=== PATIENT | female | born 1935 | race Two or more races ===

== ENCOUNTER 2016-04-14 13:32 | Emergency (ER) | payer MEDICARE, MEDICAID ==
[~2016-04-14] VITALS: Ht 154.9 cm; Wt 78.2 kg
[~2016-04-14 13:32] MED LIST: ATEN-60 PO; ESCI10TA PO; GABA300C PO; LEVO1TAB PO; LORA1TAB12 PO; MECL25TA94; OXYB15TA12 PO; POLYSOL5 EACHEYE; Pantoprazole Sodium Sesquihydr PO; SIMV-13 PO
[2016-04-14 14:49] LABS: Albumin 3.7 g/dL (3.4-5.0); BUN/Creatinine Ratio 10.5; Bilirubin, Total 0.4 mg/dL (0.2-1.0); Calcium 8.8 mg/dL (8.5-10.1); Potassium 4.1 mmol/L (3.5-5.1); Total Protein 7.5 g/dL (6.4-8.2)
[2016-04-14 15:22] LABS: Basophils # (auto) 0 uL; Basophils % (auto) 0.4 % (0.0-2.0); Eosinophils # (auto) 0.2 uL; Eosinophils % (auto) 2.8 % (0.0-7.0); Hematocrit 39.1 % (36.0-46.0); Hemoglobin 12.4 g/dL (12.2-16.2); Lymphocytes # (auto) 1.7 uL; Lymphocytes % (auto) 25.8 % (10.0-50.0); Mean Corpuscular Hemoglobin 27.8 pg (28.0-32.0); Mean Corpuscular Hgb Conc. 31.8 g/dL (32.0-36.0); Mean Corpuscular Volume 87.5 fL (80.0-100.0); Mean Platelet Volume 8.8 fL (7.4-10.4); Monocytes # (auto) 0.5 uL; Neutrophils # (auto) 4.2 uL; Platelet Count (auto) 242 10^3/uL (140-450); Red Cell Distribution Width 14.9 % (11.6-16.0); White Blood Cell 6.7 10^3/uL (4.4-10.8)
[2016-04-15] MEDS ORDERED: LORazepam 0.5 MG TAB PO ONE (00:15)
[2016-04-15 02:11] VITALS: BP 139/73
== END 2016-04-15 02:51 | disposition home or self-care (01) ==
LOC: ER 13:37
DX: R51 Headache (principal); R10.9 Unspecified abdominal pain; R19.7 Diarrhea, unspecified; J44.9 Chronic obstructive pulmonary disease, unspecified; E78.5 Hyperlipidemia, unspecified; I10 Essential (primary) hypertension; K76.9 Liver disease, unspecified; Z87.440 Personal history of urinary (tract) infections; Z90.89 Acquired absence of other organs; Z90.710 Acquired absence of both cervix and uterus; Z88.1 Allergy status to other antibiotic agents; Z88.2 Allergy status to sulfonamides; Z88.6 Allergy status to analgesic agent; Z88.8 Allergy status to other drugs, medicaments and biological substances
CPT/HCPCS: 36415; 80053; 84484; 85025; 93005

== ENCOUNTER → 2016-09-13 | Outpatient (CLI) | payer MEDICARE, MEDICAID ==
[2016-09-13 11:10] LABS: Urine Bilirubin Negative (Negative); Urine Blood Negative /uL (Negative); Urine Color Yellow (Yellow); Urine Glucose Normal (Normal); Urine Ketone Negative (Negative); Urine Mucus FEW (None Seen); Urine Nitrite Negative (Negative); Urine RBC <1 /hpf (0 - 4); Urine Squamous Epithelial Cell FEW /hpf (<5)
== END | disposition home or self-care (01) ==
LOC: LAB 10:43
PROVIDERS: ATTEND Internal Medicine Gastroenterology
DX: R10.9 Unspecified abdominal pain (principal)
CPT/HCPCS: 81001

== ENCOUNTER → 2016-11-06 | Outpatient (CLI) | payer MEDICARE, MEDICAID | END | disposition home or self-care (01) | LOC: LAB 10:43 | PROVIDERS: ATTEND Internal Medicine | DX: N39.0 Urinary tract infection, site not specified (principal) | CPT/HCPCS: 87086 ==

== ENCOUNTER 2016-12-17 19:20 | Emergency (ER) | payer MEDICARE, MEDICAID ==
[~2016-12-17] VITALS: Ht 160 cm; Wt 72.6 kg
[2016-12-17 20:37] LABS: Basophils # (auto) 0 uL; Basophils % (auto) 0.8 % (0.0-2.0); Eosinophils # (auto) 0.2 uL; Eosinophils % (auto) 3.8 % (0.0-7.0); Hematocrit 39.4 % (36.0-46.0); Hemoglobin 13.1 g/dL (12.2-16.2); Lymphocytes % (auto) 38.3 % (10.0-50.0); Mean Corpuscular Hemoglobin 30.2 pg (28.0-32.0); Mean Corpuscular Hgb Conc. 33.2 g/dL (32.0-36.0); Mean Corpuscular Volume 90.9 fL (80.0-100.0); Mean Platelet Volume 8.5 fL (7.4-10.4); Monocytes # (auto) 0.5 uL; Monocytes % (auto) 8.9 % (0.0-12.0); Neutrophils # (auto) 2.5 uL; Neutrophils % (auto) 48.2 % (37.0-80.0); Platelet Count (auto) 204 10^3/uL (140-450); Red Cell Distribution Width 14.8 % (11.6-16.0); White Blood Cell 5.2 10^3/uL (4.4-10.8)
[2016-12-17 20:59] LABS: Albumin 3.4 g/dL (3.4-5.0); Amylase 59 U/L (25-115); Anion Gap 9 (5-15); Calcium 8.5 mg/dL (8.5-10.1); Carbon Dioxide 24 mmol/L (21-32); Chloride 111 mmol/L (98-107); Glucose 101 mg/dL (74-106); Magnesium 2.5 mg/dL (1.6-2.6); Potassium 4.1 mmol/L (3.5-5.1); Sodium 144 mmol/L (136-145)
[2016-12-17 21:02] LABS: Aspartate Aminotransferase 21 U/L (15-37); BUN/Creatinine Ratio 6.7; Bilirubin, Total 0.3 mg/dL (0.2-1.0); Blood Urea Nitrogen 5 mg/dL (7-18); GFR African American 96 mL/min; GFR Non-African American 79 mL/min; Total Protein 7.1 g/dL (6.4-8.2)
[2016-12-17 21:03] LABS: INR 0.93 (0.9-1.15); Partial Thromboplastin Time 24.2 sec (22.64-33.71); Prothrombin Time 10.1 sec (9.37-12.3)
[2016-12-17 21:16] LABS: Alkaline Phosphatase 90 U/L (45-117)
[2016-12-17 21:18] LABS: Temperature: 22.2 C (20.0-25.0)
[2016-12-17 22:11] LABS: Urine RBC None Seen /hpf (0 - 4)
[2016-12-17 22:50] LABS: Urine Bilirubin Negative (Negative); Urine Blood Negative /uL (Negative); Urine Color Yellow (Yellow); Urine Glucose Normal (Normal); Urine Ketone Negative (Negative); Urine Nitrite Negative (Negative); Urine Squamous Epithelial Cell FEW /hpf (<5); Urine Urobilinogen Normal (Negative); Urine pH 7.5 (5.0-8.0)
[2016-12-18] MEDS ORDERED: ONDANSETRON HCL 4 MG/2 ML VIAL IV ONE (00:45)
[2016-12-18] MEDS ORDERED: ACETAMINOPHEN 325 MG TAB PO ONE (00:45)
[2016-12-18] MEDS ORDERED: SODIUM CHLORIDE 0.9% 1,000 ML IV ONE (00:45)
[2016-12-18 03:00] VITALS: BP 142/82
== END 2016-12-18 03:36 | disposition home or self-care (01) ==
LOC: ER 19:21
DX: R19.7 Diarrhea, unspecified (principal); R10.9 Unspecified abdominal pain; I10 Essential (primary) hypertension; E78.5 Hyperlipidemia, unspecified; E07.89 Other specified disorders of thyroid; Z86.73 Personal history of transient ischemic attack (TIA), and cerebral infarction without residual deficits; Z87.440 Personal history of urinary (tract) infections; Z90.49 Acquired absence of other specified parts of digestive tract; Z90.89 Acquired absence of other organs; Z88.0 Allergy status to penicillin; Z88.2 Allergy status to sulfonamides; Z88.6 Allergy status to analgesic agent
CPT/HCPCS: 36415; 70450; 71010; 74176; 80053; 81001; 82150; 83690; 83735; 83880; 84484; 85025; 85610; 85730; 93005; 96361; 96374; 99285; J2405; J7030

== ENCOUNTER 2017-02-07 16:19 | Emergency (ER) | payer MEDICARE, MEDICAID ==
[~2017-02-07] VITALS: Ht 154.9 cm; Wt 67.8 kg
[2017-02-07 18:16] LABS: Basophils # (auto) 0.1 uL; Basophils % (auto) 0.7 % (0.0-2.0); Eosinophils # (auto) 0.1 uL; Eosinophils % (auto) 1.7 % (0.0-7.0); Hematocrit 41.2 % (36.0-46.0); Hemoglobin 13.6 g/dL (12.2-16.2); Lymphocytes # (auto) 1.8 uL; Lymphocytes % (auto) 23.7 % (10.0-50.0); Mean Corpuscular Volume 91.1 fL (80.0-100.0); Monocytes # (auto) 0.5 uL; Monocytes % (auto) 6.4 % (0.0-12.0); Neutrophils # (auto) 5.1 uL; Neutrophils % (auto) 67.5 % (37.0-80.0); Platelet Count (auto) 190 10^3/uL (140-450); Red Blood Cells 4.53 10^6/uL (4.0-5.20); Red Cell Distribution Width 14.1 % (11.8-14.3); White Blood Cell 7.5 10^3/uL (4.4-10.8)
[2017-02-07 18:36] LABS: Alanine Aminotransferase 15 U/L (13-56); Albumin 3.8 g/dL (3.4-5.0); Alkaline Phosphatase 103 U/L (45-117); Anion Gap 9 (5-15); Aspartate Aminotransferase 20 U/L (15-37); BUN/Creatinine Ratio 14.7; Bilirubin, Total 0.5 mg/dL (0.2-1.0); Blood Urea Nitrogen 10 mg/dL (7-18); Calcium 8.9 mg/dL (8.5-10.1); Carbon Dioxide 24 mmol/L (21-32); Chloride 106 mmol/L (98-107); GFR African American 107 mL/min; GFR Non-African American 88 mL/min; Glucose 96 mg/dL (74-106); Potassium 3.8 mmol/L (3.5-5.1); Sodium 139 mmol/L (136-145); Total Protein 7.8 g/dL (6.4-8.2)
[2017-02-07 21:49] LABS: Urine Bacteria FEW /hpf (None Seen); Urine Blood Negative /uL (Negative); Urine Specific Gravity 1.006 (1.001-1.035); Urine WBC 5 /hpf (0 - 5)
[2017-02-07] MEDS ORDERED: CLINDAMYCIN 600MG IV 50 ML IV ONE (22:45)
[2017-02-07] MEDS ORDERED: HYDROcodone-ACET 5/325MG TAB PO ONE (22:45)
[2017-02-08 00:43] VITALS: BP 145/73
== END 2017-02-08 00:47 | disposition home or self-care (01) ==
LOC: ER 16:25
DX: R42 Dizziness and giddiness (principal); T63.301A Toxic effect of unspecified spider venom, accidental (unintentional), initial encounter; R51 Headache; L03.116 Cellulitis of left lower limb; I10 Essential (primary) hypertension; Z90.49 Acquired absence of other specified parts of digestive tract; Z87.440 Personal history of urinary (tract) infections; Z86.73 Personal history of transient ischemic attack (TIA), and cerebral infarction without residual deficits; Z88.1 Allergy status to other antibiotic agents; Z88.2 Allergy status to sulfonamides; Z88.6 Allergy status to analgesic agent; Z88.8 Allergy status to other drugs, medicaments and biological substances
CPT/HCPCS: 36415; 71020; 80053; 81001; 84484; 85025; 93005; 96365; 96366; 99285; J3490

== ENCOUNTER → 2017-02-26 | Outpatient (CLI) | payer MEDICARE, MEDICAID ==
[~2017-02-26] MED LIST changes: -ATEN-60 PO
[2017-02-26 11:10] VITALS: BP 179/54
[2017-02-26 12:39] LABS: Basophils # (auto) 0 uL; Basophils % (auto) 0.3 % (0.0-2.0); Eosinophils # (auto) 0.2 uL; Eosinophils % (auto) 3.1 % (0.0-7.0); Hematocrit 34.7 % (36.0-46.0); Hemoglobin 11.5 g/dL (12.2-16.2); Lymphocytes # (auto) 1.5 uL; Lymphocytes % (auto) 20.7 % (10.0-50.0); Mean Corpuscular Hemoglobin 31.3 pg (28.0-32.0); Mean Corpuscular Hgb Conc. 33.2 g/dL (32.0-36.0); Mean Corpuscular Volume 94.5 fL (80.0-100.0); Mean Platelet Volume 7.5 fL (6.9-10.8); Monocytes # (auto) 0.6 uL; Monocytes % (auto) 8.3 % (0.0-12.0); Neutrophils # (auto) 4.9 uL; Neutrophils % (auto) 67.6 % (37.0-80.0); Platelet Count (auto) 260 10^3/uL (140-450); Red Cell Distribution Width 17.1 % (11.8-14.3); White Blood Cell 7.3 10^3/uL (4.4-10.8)
[2017-02-26 13:03] LABS: Magnesium 2.2 mg/dL (1.6-2.6)
[2017-02-26 13:14] LABS: B-Type Natriuretic Peptide 30.85 pg/mL (0-100)
[2017-02-26 13:56] LABS: Temperature: 21.4 C (20.0-25.0)
== END | disposition home or self-care (01) ==
LOC: CHF HDHVI 11:11
PROVIDERS: ATTEND Internal Medicine Cardiovascular Disease
DX: I50.9 Heart failure, unspecified (principal); E83.42 Hypomagnesemia; D64.9 Anemia, unspecified; I20.9 Angina pectoris, unspecified; Z95.0 Presence of cardiac pacemaker
CPT/HCPCS: 36415; 83735; 83880; 84484; 85025; 93005; G0463

== ENCOUNTER 2017-04-13 12:50 | Emergency (ER) | payer MEDICARE, MEDICAID ==
[~2017-04-13] VITALS: Ht 154.9 cm; Wt 66.2 kg
[~2017-04-13 12:50] MED LIST changes: -MECL25TA94
[2017-04-13 14:08] LABS: Basophils # (auto) 0.1 uL; Basophils % (auto) 0.6 % (0.0-2.0); Eosinophils # (auto) 0.2 uL; Hematocrit 39.1 % (36.0-46.0); Hemoglobin 12.8 g/dL (12.2-16.2); Lymphocytes # (auto) 1.6 uL; Lymphocytes % (auto) 17.4 % (10.0-50.0); Mean Corpuscular Hemoglobin 30.3 pg (28.0-32.0); Mean Corpuscular Hgb Conc. 32.6 g/dL (32.0-36.0); Mean Corpuscular Volume 92.8 fL (80.0-100.0); Monocytes # (auto) 0.7 uL; Monocytes % (auto) 7.9 % (0.0-12.0); Neutrophils # (auto) 6.8 uL; Neutrophils % (auto) 72.1 % (37.0-80.0); Platelet Count (auto) 243 10^3/uL (140-450); Red Blood Cells 4.21 10^6/uL (4.0-5.20); Red Cell Distribution Width 14.1 % (11.8-14.3); White Blood Cell 9.4 10^3/uL (4.4-10.8)
[2017-04-13 14:27] LABS: Albumin 3.7 g/dL (3.4-5.0); BUN/Creatinine Ratio 14.9; Bilirubin, Total 0.6 mg/dL (0.2-1.0); Calcium 8.9 mg/dL (8.5-10.1); Potassium 3.5 mmol/L (3.5-5.1); Total Protein 7.9 g/dL (6.4-8.2)
[2017-04-13 15:03] VITALS: BP 166/59
== END 2017-04-13 15:31 | disposition home or self-care (01) ==
LOC: ER 12:50
DX: J20.9 Acute bronchitis, unspecified (principal); J02.9 Acute pharyngitis, unspecified; N39.0 Urinary tract infection, site not specified; I10 Essential (primary) hypertension; E78.5 Hyperlipidemia, unspecified; Z90.49 Acquired absence of other specified parts of digestive tract; Z86.73 Personal history of transient ischemic attack (TIA), and cerebral infarction without residual deficits; Z96.89 Presence of other specified functional implants; Z88.1 Allergy status to other antibiotic agents; Z88.8 Allergy status to other drugs, medicaments and biological substances
CPT/HCPCS: 36415; 71046; 80053; 81002; 85025

== ENCOUNTER → 2017-07-10 | Outpatient (CLI) | payer MEDICARE, MEDICAID | END | disposition home or self-care (01) | LOC: Rad HDHVI 10:10 | PROVIDERS: ATTEND Internal Medicine | DX: I73.9 Peripheral vascular disease, unspecified (principal); I10 Essential (primary) hypertension; E78.5 Hyperlipidemia, unspecified; J44.9 Chronic obstructive pulmonary disease, unspecified; Z79.899 Other long term (current) drug therapy | CPT/HCPCS: 93926 ==

== ENCOUNTER 2017-08-21 09:56 | Inpatient (IN) | payer MEDICARE, MEDICAID ==
[~2017-08-21] VITALS: Ht 154.9 cm; Wt 66.2 kg
[2017-08-21 11:16] LABS: Urine Bacteria FEW /hpf (None Seen); Urine Blood TRACE /uL (Negative); Urine Mucus FEW (None Seen); Urine Specific Gravity 1.018 (1.001-1.035); Urine WBC 464 /hpf (0 - 5); Urine WBC Clumps PRESENT /hpf (None Seen)
[2017-08-21 11:31] LABS: Basophils # (auto) 0.1 uL; Basophils % (auto) 1.9 % (0.0-2.0); Eosinophils # (auto) 0.2 uL; Eosinophils % (auto) 2.6 % (0.0-7.0); Hematocrit 39.8 % (36.0-46.0); Hemoglobin 13.2 g/dL (12.2-16.2); Lymphocytes # (auto) 1.6 uL; Lymphocytes % (auto) 25.6 % (10.0-50.0); Mean Corpuscular Hemoglobin 30.4 pg (28.0-32.0); Mean Corpuscular Hgb Conc. 33.1 g/dL (32.0-36.0); Mean Corpuscular Volume 91.9 fL (80.0-100.0); Monocytes # (auto) 0.5 uL; Monocytes % (auto) 7.8 % (0.0-12.0); Neutrophils # (auto) 3.9 uL; Neutrophils % (auto) 62.1 % (37.0-80.0); Nucleated Red Blood Cells % 0.1 %; Platelet Count (auto) 202 10^3/uL (140-450); Red Blood Cells 4.33 10^6/uL (4.0-5.20); Red Cell Distribution Width 15.3 % (11.8-14.3); White Blood Cell 6.3 10^3/uL (4.4-10.8)
[2017-08-21] MEDS ORDERED: cefTRIAXone 1GM/10ml IVPUSH 10 ML IV ONE ×2 (11:45→14:00)
[2017-08-21] MEDS ORDERED: ONDANSETRON ODT 4 MG TAB PO ONE (11:45)
[2017-08-21] MEDS ORDERED: SODIUM CHLORIDE 0.9% 500 ML IV ONE (11:45)
[2017-08-21 11:48] LABS: Albumin 3.8 g/dL (3.4-5.0); Bilirubin, Total 0.4 mg/dL (0.2-1.0); Calcium 8.8 mg/dL (8.5-10.1); Potassium 4.7 mmol/L (3.5-5.1); Total Protein 7.8 g/dL (6.4-8.2)
[2017-08-21] MEDS ORDERED: LEVOFLOXACIN 500MG 100 ML IV ONE (12:30)
[2017-08-21] MEDS ORDERED: MORPHINE SULFATE 4 MG/ML SYR/VIAL IV ONE (12:30)
[2017-08-21] MEDS ORDERED: METOCLOPRAMIDE HCL 5MG/ml INJ 2ml VIAL IV ONE (12:30)
[2017-08-21] MEDS: B-COMPLEX W/ C & FOLIC ACID(NEPHROVITE TAB) PO SCH (14:00)
[2017-08-21] MEDS ORDERED: MORPHINE SULFATE 4 MG/ML SYR/VIAL IV PRN ×2 (14:15)
[2017-08-21] MEDS ORDERED: ACETAMINOPHEN 325 MG TAB PO PRN (14:15)
[2017-08-21] MEDS ORDERED: NITROGLYCERIN 0.4 MG SL TAB SL PRN (14:15)
[2017-08-21] MEDS ORDERED: DOCUSATE SOD 100 MG CAP PO PRN (14:15)
[2017-08-21] MEDS ORDERED: GABAPENTIN 300 MG CAP PO ONE (14:30)
[2017-08-21] MEDS ORDERED: LEVOTHYROXINE SODIUM 25 MCG TAB PO ONE (14:30)
[2017-08-21] MEDS ORDERED: MULTIPLE VITAMIN TAB PO ONE (14:30)
[2017-08-21] MEDS ORDERED: CITALOPRAM HYDROBR 20 MG TAB PO ONE (14:30)
[2017-08-21] MEDS ORDERED: PANTOPRAZOLE 40 MG TAB PO ONE (14:30)
[2017-08-21] MEDS ORDERED: ASPirin-EC 81 mg tab PO ONE (14:30)
[2017-08-21] MEDS ORDERED: LORazepam 2MG/ML-1ML VIAL IV PRN (16:30)
[2017-08-21] MEDS: OXYBUTYNIN CHL 5 MG TAB PO SCH ×2 (18:00→23:55)
[2017-08-21] MEDS: ONDANSETRON HCL 4 MG/2 ML VIAL IV PRN (18:30)
[2017-08-21] MEDS: HYDROcodone-ACET 5/325MG TAB PO PRN (18:30)
[2017-08-21] MEDS: GABAPENTIN 300 MG CAP PO SCH (21:26)
[2017-08-21] MEDS: LORazepam 0.5 MG TAB PO PRN (21:28)
[2017-08-21] MEDS: ATORVASTATIN 20 MG TAB PO SCH (21:28)
[2017-08-21] MEDS: SODIUM CHLOR 0.9% PF (SALINE LOCK) 10ML VIAL/SYR IV SCH (21:29)
[2017-08-21 21:59] VITALS: BP 152/82
[2017-08-22 05:00] VITALS: BP 117/66
[2017-08-22] MEDS: LEVOTHYROXINE SODIUM 25 MCG TAB PO SCH (05:53)
[2017-08-22] MEDS: SODIUM CHLOR 0.9% PF (SALINE LOCK) 10ML VIAL/SYR IV SCH ×3 (05:53→21:38)
[2017-08-22] MEDS: OXYBUTYNIN CHL 5 MG TAB PO SCH ×4 (05:54→23:25)
[2017-08-22 06:54] LABS: Basophils # (auto) 0.1 uL; Basophils % (auto) 1.1 % (0.0-2.0); Eosinophils # (auto) 0.2 uL; Eosinophils % (auto) 3.8 % (0.0-7.0); Hematocrit 39.8 % (36.0-46.0); Hemoglobin 13.2 g/dL (12.2-16.2); Lymphocytes # (auto) 1.5 uL; Lymphocytes % (auto) 30.1 % (10.0-50.0); Mean Corpuscular Hemoglobin 30.6 pg (28.0-32.0); Mean Corpuscular Hgb Conc. 33.1 g/dL (32.0-36.0); Mean Corpuscular Volume 92.3 fL (80.0-100.0); Monocytes # (auto) 0.4 uL; Monocytes % (auto) 9.3 % (0.0-12.0); Neutrophils # (auto) 2.7 uL; Neutrophils % (auto) 55.7 % (37.0-80.0); Nucleated Red Blood Cells % 0.1 %; Platelet Count (auto) 204 10^3/uL (140-450); Red Blood Cells 4.31 10^6/uL (4.0-5.20); Red Cell Distribution Width 15.3 % (11.8-14.3); White Blood Cell 4.8 10^3/uL (4.4-10.8)
[2017-08-22 07:03] LABS: Albumin 3.4 g/dL (3.4-5.0); Calcium 8.5 mg/dL (8.5-10.1); Potassium 4.1 mmol/L (3.5-5.1)
[2017-08-22 07:05] LABS: BUN/Creatinine Ratio 12.8
[2017-08-22 07:07] LABS: Bilirubin, Total 0.6 mg/dL (0.2-1.0); Total Protein 7.5 g/dL (6.4-8.2)
[2017-08-22 09:00] VITALS: BP 117/66
[2017-08-22] MEDS: cefTRIAXone 1GM/10ml IVPUSH 10 ML IV SCH (09:02)
[2017-08-22] MEDS: GABAPENTIN 300 MG CAP PO SCH ×2 (09:02→21:38)
[2017-08-22] MEDS: ONDANSETRON HCL 4 MG/2 ML VIAL IV PRN (09:02)
[2017-08-22] MEDS: CITALOPRAM HYDROBR 20 MG TAB PO SCH (09:02)
[2017-08-22] MEDS: B-COMPLEX W/ C & FOLIC ACID(NEPHROVITE TAB) PO SCH (09:02)
[2017-08-22] MEDS: PANTOPRAZOLE 40 MG TAB PO SCH (09:03)
[2017-08-22] MEDS: MULTIPLE VITAMIN TAB PO SCH (09:03)
[2017-08-22] MEDS: ASPirin-EC 81 mg tab PO SCH (09:03)
[2017-08-22] MEDS: KETOCONAZOLE 2 % TOPICAL CREAM 15GM TOP SCH (10:00)
[2017-08-22 14:00] VITALS: BP 126/80
[2017-08-22 17:00] VITALS: BP 115/69
[2017-08-22] MEDS: HYDROcodone-ACET 5/325MG TAB PO PRN (17:30)
[2017-08-22 20:00] VITALS: BP 118/63
[2017-08-22] MEDS: ATORVASTATIN 20 MG TAB PO SCH (21:39)
[2017-08-22] MEDS: LORazepam 0.5 MG TAB PO PRN (21:48)
[2017-08-22 22:00] VITALS: BP 118/63
[2017-08-23 05:00] VITALS: BP 130/69
[2017-08-23] MEDS: LEVOTHYROXINE SODIUM 25 MCG TAB PO SCH (06:16)
[2017-08-23] MEDS: OXYBUTYNIN CHL 5 MG TAB PO SCH ×3 (06:16→18:00)
[2017-08-23] MEDS: SODIUM CHLOR 0.9% PF (SALINE LOCK) 10ML VIAL/SYR IV SCH ×2 (06:16→14:00)
[2017-08-23 06:19] LABS: Basophils # (auto) 0 uL; Eosinophils # (auto) 0.2 uL; Hematocrit 38.6 % (36.0-46.0); Hemoglobin 12.8 g/dL (12.2-16.2); Lymphocytes # (auto) 1.6 uL; Lymphocytes % (auto) 33.5 % (10.0-50.0); Mean Corpuscular Hemoglobin 30.8 pg (28.0-32.0); Mean Corpuscular Hgb Conc. 33.2 g/dL (32.0-36.0); Mean Corpuscular Volume 92.6 fL (80.0-100.0); Monocytes # (auto) 0.5 uL; Monocytes % (auto) 11.4 % (0.0-12.0); Neutrophils # (auto) 2.3 uL; Neutrophils % (auto) 49.1 % (37.0-80.0); Nucleated Red Blood Cells % 0.1 %; Platelet Count (auto) 187 10^3/uL (140-450); Red Blood Cells 4.17 10^6/uL (4.0-5.20); Red Cell Distribution Width 15.4 % (11.8-14.3); White Blood Cell 4.7 10^3/uL (4.4-10.8)
[2017-08-23 06:37] LABS: Calcium 8.9 mg/dL (8.5-10.1); Potassium 4.6 mmol/L (3.5-5.1)
[2017-08-23 06:40] LABS: BUN/Creatinine Ratio 19.8
[2017-08-23 09:00] VITALS: BP 108/63
[2017-08-23] MEDS: cefTRIAXone 1GM/10ml IVPUSH 10 ML IV SCH (09:37)
[2017-08-23] MEDS: ASPirin-EC 81 mg tab PO SCH (09:37)
[2017-08-23] MEDS: CITALOPRAM HYDROBR 20 MG TAB PO SCH (09:37)
[2017-08-23] MEDS: B-COMPLEX W/ C & FOLIC ACID(NEPHROVITE TAB) PO SCH (09:38)
[2017-08-23] MEDS: MULTIPLE VITAMIN TAB PO SCH (09:38)
[2017-08-23] MEDS: GABAPENTIN 300 MG CAP PO SCH (09:39)
[2017-08-23] MEDS: KETOCONAZOLE 2 % TOPICAL CREAM 15GM TOP SCH (09:39)
[2017-08-23] MEDS: PANTOPRAZOLE 40 MG TAB PO SCH (09:39)
[2017-08-23] MEDS: HYDROcodone-ACET 5/325MG TAB PO PRN (09:40)
[2017-08-23 13:00] VITALS: BP 137/82
[2017-08-23 14:54] VITALS: BP 137/82
== END 2017-08-23 17:17 | disposition home or self-care (01) | DRG 690 ==
LOC: ER 10:03 → TELE 10:04 → TELE-WESTW 18:16
PROVIDERS: ADMIT Internal Medicine; ATTEND Internal Medicine
DX: N12 Tubulo-interstitial nephritis, not specified as acute or chronic (principal); G62.9 Polyneuropathy, unspecified; I67.2 Cerebral atherosclerosis; I73.9 Peripheral vascular disease, unspecified; E03.9 Hypothyroidism, unspecified; I95.1 Orthostatic hypotension; N18.2 Chronic kidney disease, stage 2 (mild); I12.9 Hypertensive chronic kidney disease with stage 1 through stage 4 chronic kidney disease, or unspecified chronic kidney disease; E78.5 Hyperlipidemia, unspecified; F32.9 Major depressive disorder, single episode, unspecified; F41.9 Anxiety disorder, unspecified; R26.9 Unspecified abnormalities of gait and mobility; G47.00 Insomnia, unspecified; K59.00 Constipation, unspecified; T50.995A Adverse effect of other drugs, medicaments and biological substances, initial encounter; G96.9 Disorder of central nervous system, unspecified; R51 Headache; K21.9 Gastro-esophageal reflux disease without esophagitis; Z79.82 Long term (current) use of aspirin; Z79.899 Other long term (current) drug therapy; Z82.0 Family history of epilepsy and other diseases of the nervous system; Z82.49 Family history of ischemic heart disease and other diseases of the circulatory system; Z83.3 Family history of diabetes mellitus; Z86.73 Personal history of transient ischemic attack (TIA), and cerebral infarction without residual deficits; Z90.49 Acquired absence of other specified parts of digestive tract; Z95.0 Presence of cardiac pacemaker; Z90.89 Acquired absence of other organs; Z80.8 Family history of malignant neoplasm of other organs or systems; Z88.1 Allergy status to other antibiotic agents; Z88.2 Allergy status to sulfonamides; Z88.8 Allergy status to other drugs, medicaments and biological substances; Y92.89 Other specified places as the place of occurrence of the external cause
CPT/HCPCS: 36415; 70450; 80048; 80053; 81001; 85025; 87040; 87086; 93005; 93306; 96361; 96365; 96375; J1956; J2405; Q0162

== ENCOUNTER → 2017-08-30 | Outpatient (CLI) | payer MEDICARE, MEDICAID ==
[~2017-08-30] MED LIST changes: +ACETAMINOPHEN 500 MG TAB PO ONE; +MVI in SODIUM CHLORIDE 0.9% 1,010 ML ONE; +MVI in SODIUM CHLORIDE 0.9% 500 ML IVB ONE; +ONDANSETRON HCL 4 MG/2 ML VIAL IV ONE; +ONDANSETRON HCL 4 MG/2 ML VIAL ONE
[2017-08-30 12:15] VITALS: BP 147/65
[2017-08-30 14:45] VITALS: BP 154/69
[2017-08-30 16:06] LABS: Basophils # (auto) 0 uL; Basophils % (auto) 0.6 % (0.0-2.0); Eosinophils # (auto) 0.1 uL; Eosinophils % (auto) 2.1 % (0.0-7.0); Hematocrit 38.9 % (36.0-46.0); Lymphocytes # (auto) 1.4 uL; Lymphocytes % (auto) 22.4 % (10.0-50.0); Mean Corpuscular Hemoglobin 30.6 pg (28.0-32.0); Mean Corpuscular Hgb Conc. 33.4 g/dL (32.0-36.0); Mean Corpuscular Volume 91.8 fL (80.0-100.0); Monocytes # (auto) 0.4 uL; Neutrophils # (auto) 4.2 uL; Neutrophils % (auto) 67.9 % (37.0-80.0); Nucleated Red Blood Cells % 0.2 %; Platelet Count (auto) 201 10^3/uL (140-450); Red Blood Cells 4.24 10^6/uL (4.0-5.20); Red Cell Distribution Width 14.7 % (11.8-14.3); White Blood Cell 6.2 10^3/uL (4.4-10.8)
[2017-08-30 16:27] LABS: BUN/Creatinine Ratio 13.5; Calcium 8.9 mg/dL (8.5-10.1); Magnesium 2.5 mg/dL (1.6-2.6)
== END | disposition home or self-care (01) ==
LOC: CHF HDHVI 11:59
PROVIDERS: ATTEND Internal Medicine
DX: E86.0 Dehydration (principal); D64.9 Anemia, unspecified; E83.40 Disorders of magnesium metabolism, unspecified; J44.9 Chronic obstructive pulmonary disease, unspecified; I12.9 Hypertensive chronic kidney disease with stage 1 through stage 4 chronic kidney disease, or unspecified chronic kidney disease; N18.2 Chronic kidney disease, stage 2 (mild); K21.9 Gastro-esophageal reflux disease without esophagitis; E78.5 Hyperlipidemia, unspecified; E03.9 Hypothyroidism, unspecified; Z79.899 Other long term (current) drug therapy; Z95.0 Presence of cardiac pacemaker; Z79.82 Long term (current) use of aspirin; Z86.73 Personal history of transient ischemic attack (TIA), and cerebral infarction without residual deficits
CPT/HCPCS: 36415; 80048; 83735; 85025; 96365; 96366; 96375; G0463; J2405; J3411; J3475; 96374

== ENCOUNTER 2017-08-31 14:51 | Emergency (ER) | payer MEDICARE, MEDICAID ==
[~2017-08-31] VITALS: Ht 154.9 cm; Wt 64.9 kg
[~2017-08-31 14:51] MED LIST changes: -ACETAMINOPHEN 500 MG TAB PO ONE; -MVI in SODIUM CHLORIDE 0.9% 1,010 ML ONE; -MVI in SODIUM CHLORIDE 0.9% 500 ML IVB ONE; -ONDANSETRON HCL 4 MG/2 ML VIAL IV ONE; -ONDANSETRON HCL 4 MG/2 ML VIAL ONE
[2017-08-31] MEDS ORDERED: SODIUM CHLORIDE 0.9% 1,000 ML IV ONE (15:07)
[2017-08-31 16:02] LABS: Basophils # (auto) 0.1 uL; Eosinophils # (auto) 0.1 uL; Eosinophils % (auto) 2.5 % (0.0-7.0); Hematocrit 38.3 % (36.0-46.0); Hemoglobin 12.9 g/dL (12.2-16.2); Lymphocytes # (auto) 1.5 uL; Lymphocytes % (auto) 26.7 % (10.0-50.0); Mean Corpuscular Hemoglobin 31.1 pg (28.0-32.0); Mean Corpuscular Hgb Conc. 33.7 g/dL (32.0-36.0); Mean Corpuscular Volume 92.2 fL (80.0-100.0); Monocytes # (auto) 0.3 uL; Monocytes % (auto) 5.9 % (0.0-12.0); Neutrophils # (auto) 3.7 uL; Neutrophils % (auto) 63.9 % (37.0-80.0); Nucleated Red Blood Cells % 0.1 %; Platelet Count (auto) 196 10^3/uL (140-450); Red Blood Cells 4.15 10^6/uL (4.0-5.20); Red Cell Distribution Width 14.6 % (11.8-14.3); White Blood Cell 5.8 10^3/uL (4.4-10.8)
[2017-08-31 16:09] LABS: Alanine Aminotransferase 22 U/L (13-56); Albumin 3.6 g/dL (3.4-5.0); Anion Gap 12 (5-15); Aspartate Aminotransferase 25 U/L (15-37); BUN/Creatinine Ratio 10.8; Blood Urea Nitrogen 8 mg/dL (7-18); Calcium 8.7 mg/dL (8.5-10.1); Carbon Dioxide 22 mmol/L (21-32); Chloride 107 mmol/L (98-107); GFR African American 97 mL/min; GFR Non-African American 80 mL/min; Glucose 84 mg/dL (74-106); Potassium 3.5 mmol/L (3.5-5.1); Sodium 141 mmol/L (136-145)
[2017-08-31 16:11] LABS: INR 0.96 (0.9-1.15); Prothrombin Time 10.3 sec (9.27-12.13)
[2017-08-31 16:14] LABS: Alkaline Phosphatase 79 U/L (45-117); Bilirubin, Total 0.4 mg/dL (0.2-1.0); Total Protein 7.4 g/dL (6.4-8.2)
[2017-08-31 17:23] LABS: Urine Bacteria NONE SEEN /hpf (None Seen); Urine Blood Negative /uL (Negative); Urine Specific Gravity 1.003 (1.001-1.035); Urine WBC <1 /hpf (0 - 5)
[2017-08-31 17:58] VITALS: BP 163/77
== END 2017-08-31 18:26 | disposition home or self-care (01) ==
LOC: EDBD 14:51 → ER 14:54
DX: R10.9 Unspecified abdominal pain (principal); F41.9 Anxiety disorder, unspecified; M54.9 Dorsalgia, unspecified; R53.1 Weakness; K21.9 Gastro-esophageal reflux disease without esophagitis; E78.5 Hyperlipidemia, unspecified; I10 Essential (primary) hypertension; E07.9 Disorder of thyroid, unspecified; Z90.49 Acquired absence of other specified parts of digestive tract; Z95.0 Presence of cardiac pacemaker; Z88.1 Allergy status to other antibiotic agents; Z88.8 Allergy status to other drugs, medicaments and biological substances; Z88.2 Allergy status to sulfonamides
CPT/HCPCS: 36415; 71045; 74176; 80053; 81001; 84484; 85025; 85610; 85730

== ENCOUNTER → 2017-09-10 | Outpatient (CLI) | payer MEDICARE, MEDICAID | END | disposition home or self-care (01) | LOC: LAB 12:25 | PROVIDERS: ATTEND Internal Medicine Gastroenterology | DX: R10.11 Right upper quadrant pain (principal); R19.7 Diarrhea, unspecified; K21.9 Gastro-esophageal reflux disease without esophagitis; E78.5 Hyperlipidemia, unspecified; I12.9 Hypertensive chronic kidney disease with stage 1 through stage 4 chronic kidney disease, or unspecified chronic kidney disease; N18.2 Chronic kidney disease, stage 2 (mild); E03.9 Hypothyroidism, unspecified; J44.9 Chronic obstructive pulmonary disease, unspecified; Z79.899 Other long term (current) drug therapy | CPT/HCPCS: 87045; 87493; 87899 ==

== ENCOUNTER 2017-11-20 11:56 | Emergency (ER) | payer MEDICARE, MEDICAID ==
[~2017-11-20] VITALS: Ht 154.9 cm; Wt 64.9 kg
[~2017-11-20 11:56] MED LIST changes: +ACET-6 PO; +FOLITAB22 PO; +ROSU20TA14 PO; -SIMV-13 PO; +SUCR1TAB38 OR
[2017-11-20 13:09] LABS: Basophils # (auto) 0 uL; Basophils % (auto) 0.6 % (0.0-2.0); Eosinophils # (auto) 0.1 uL; Eosinophils % (auto) 1.3 % (0.0-7.0); Hematocrit 39.3 % (36.0-46.0); Hemoglobin 13.1 g/dL (12.2-16.2); Lymphocytes # (auto) 1.7 uL; Lymphocytes % (auto) 27.2 % (10.0-50.0); Mean Corpuscular Hemoglobin 30.9 pg (28.0-32.0); Mean Corpuscular Hgb Conc. 33.4 g/dL (32.0-36.0); Mean Corpuscular Volume 92.6 fL (80.0-100.0); Monocytes # (auto) 0.5 uL; Monocytes % (auto) 7.8 % (0.0-12.0); Neutrophils % (auto) 63.1 % (37.0-80.0); Nucleated Red Blood Cells % 0.1 %; Platelet Count (auto) 199 10^3/uL (140-450); Red Blood Cells 4.24 10^6/uL (4.0-5.20); Red Cell Distribution Width 13.9 % (11.8-14.3); White Blood Cell 6.4 10^3/uL (4.4-10.8)
[2017-11-20 13:24] LABS: Albumin 3.5 g/dL (3.4-5.0); Anion Gap 11 (5-15); BUN/Creatinine Ratio 14.7; Blood Urea Nitrogen 11 mg/dL (7-18); Calcium 8.3 mg/dL (8.5-10.1); Carbon Dioxide 22 mmol/L (21-32); Chloride 109 mmol/L (98-107); GFR African American 96 mL/min; GFR Non-African American 79 mL/min; Glucose 86 mg/dL (74-106); Potassium 3.6 mmol/L (3.5-5.1); Sodium 142 mmol/L (136-145)
[2017-11-20] MEDS ORDERED: diphenhdrAMINE HCL 50 MG/1 ML VL IV ONE (13:30)
[2017-11-20 13:36] LABS: Alanine Aminotransferase 18 U/L (13-56); Alkaline Phosphatase 65 U/L (45-117); Aspartate Aminotransferase 21 U/L (15-37); Bilirubin, Total 0.5 mg/dL (0.2-1.0); Total Protein 7.2 g/dL (6.4-8.2)
[2017-11-20 14:22] LABS: Urine Bacteria NONE SEEN /hpf (None Seen); Urine Blood Negative /uL (Negative); Urine Specific Gravity 1.005 (1.001-1.035); Urine WBC 1 /hpf (0 - 5)
[2017-11-20 14:50] VITALS: BP 155/77
[2017-11-20] MEDS ORDERED: LORazepam 0.5 MG TAB PO ONE (16:00)
== END 2017-11-20 17:35 | disposition home or self-care (01) ==
LOC: ER 11:56
DX: F41.9 Anxiety disorder, unspecified (principal); R07.0 Pain in throat; F32.9 Major depressive disorder, single episode, unspecified; K21.9 Gastro-esophageal reflux disease without esophagitis; E78.5 Hyperlipidemia, unspecified; I10 Essential (primary) hypertension; Z90.49 Acquired absence of other specified parts of digestive tract; Z87.891 Personal history of nicotine dependence; Z96.89 Presence of other specified functional implants
CPT/HCPCS: 36415; 71045; 71250; 80053; 81001; 84484; 85025; 93005; 94761; 96374; 99285; J1200

== ENCOUNTER 2018-02-15 12:00 | Emergency (ER) | payer MEDICARE, MEDICAID ==
[~2018-02-15] VITALS: Ht 154.9 cm; Wt 64.9 kg
[2018-02-15 12:41] LABS: Urine Bacteria NONE SEEN /hpf (None Seen); Urine Blood Negative /uL (Negative); Urine Specific Gravity 1.001 (1.001-1.035); Urine WBC <1 /hpf (0 - 5)
[2018-02-15 13:55] LABS: Basophils # (auto) 0.1 uL; Basophils % (auto) 0.9 % (0.0-2.0); Eosinophils # (auto) 0.2 uL; Eosinophils % (auto) 2.9 % (0.0-7.0); Hematocrit 40.8 % (36.0-46.0); Hemoglobin 13.7 g/dL (12.2-16.2); Lymphocytes # (auto) 1.4 uL; Lymphocytes % (auto) 25.6 % (10.0-50.0); Mean Corpuscular Hemoglobin 31.6 pg (28.0-32.0); Mean Corpuscular Hgb Conc. 33.6 g/dL (32.0-36.0); Mean Corpuscular Volume 93.8 fL (80.0-100.0); Monocytes # (auto) 0.5 uL; Monocytes % (auto) 9.4 % (0.0-12.0); Neutrophils # (auto) 3.5 uL; Neutrophils % (auto) 61.2 % (37.0-80.0); Nucleated Red Blood Cells % 0.1 %; Platelet Count (auto) 184 10^3/uL (140-450); Red Blood Cells 4.34 10^6/uL (4.0-5.20); Red Cell Distribution Width 13.2 % (11.8-14.3); White Blood Cell 5.6 10^3/uL (4.4-10.8)
[2018-02-15 14:12] LABS: Alanine Aminotransferase 24 U/L (13-56); Albumin 3.9 g/dL (3.4-5.0); Anion Gap 8 (5-15); Aspartate Aminotransferase 31 U/L (15-37); BUN/Creatinine Ratio 7.5; Blood Urea Nitrogen 8 mg/dL (7-18); Calcium 8.5 mg/dL (8.5-10.1); Carbon Dioxide 25 mmol/L (21-32); Chloride 107 mmol/L (98-107); GFR African American 64 mL/min; GFR Non-African American 53 mL/min; Glucose 88 mg/dL (74-106); Potassium 3.5 mmol/L (3.5-5.1); Sodium 140 mmol/L (136-145)
[2018-02-15 14:17] LABS: Alkaline Phosphatase 80 U/L (45-117); Bilirubin, Total 0.6 mg/dL (0.2-1.0); Total Protein 7.6 g/dL (6.4-8.2)
[2018-02-15 15:58] VITALS: BP 163/88
[2018-02-15] MEDS ORDERED: ONDANSETRON HCL 4 MG/2 ML VIAL ONE (17:07)
[2018-02-15] MEDS ORDERED: ONDANSETRON HCL 4 MG/2 ML VIAL IV ONE (17:15)
[2018-02-15] MEDS ORDERED: ACETAMINOPHEN 325 MG TAB PO ONE (18:15)
[2018-02-15] MEDS ORDERED: IBUPROFEN 600 MG TAB PO ONE (18:15)
== END 2018-02-15 17:12 | disposition home or self-care (01) ==
LOC: ER 12:00
DX: R53.1 Weakness (principal); R11.0 Nausea; I10 Essential (primary) hypertension; R51 Headache; E78.5 Hyperlipidemia, unspecified; E07.89 Other specified disorders of thyroid; Z90.49 Acquired absence of other specified parts of digestive tract; Z90.89 Acquired absence of other organs; Z95.0 Presence of cardiac pacemaker; Z79.899 Other long term (current) drug therapy; Z88.1 Allergy status to other antibiotic agents; Z88.2 Allergy status to sulfonamides; Z88.6 Allergy status to analgesic agent; Z88.8 Allergy status to other drugs, medicaments and biological substances
CPT/HCPCS: 36415; 70450; 74176; 80053; 81001; 84484; 85025; 93005; 94761; 96374; 99285; J2405

== ENCOUNTER → 2018-03-07 | Outpatient (CLI) | payer MEDICARE, MEDICAID ==
[~2018-03-07] VITALS: Ht 154.9 cm; Wt 66.2 kg
[~2018-03-07] MED LIST changes: +ADENOSINE 56 MG in GIVE UN-DILUTED 0 ML IV ONE; +ADENOSINE 90 MG/30 ML INJ IV ONE
== END | disposition home or self-care (01) ==
LOC: Rad HDHVI 09:15
PROVIDERS: ATTEND Internal Medicine Cardiovascular Disease
DX: R07.89 Other chest pain (principal); I49.5 Sick sinus syndrome; Z95.0 Presence of cardiac pacemaker
CPT/HCPCS: 78452; 93005; 96374; 96375; A9500; J0153

== ENCOUNTER 2018-04-13 01:52 | Emergency (ER) | payer MEDICARE, MEDICAID ==
[~2018-04-13] VITALS: Ht 154.9 cm; Wt 63.5 kg
[~2018-04-13 01:52] MED LIST changes: -ADENOSINE 56 MG in GIVE UN-DILUTED 0 ML IV ONE; -ADENOSINE 90 MG/30 ML INJ IV ONE
[2018-04-13 03:14] LABS: Basophils # (auto) 0 uL; Basophils % (auto) 0.9 % (0.0-2.0); Eosinophils # (auto) 0.2 uL; Eosinophils % (auto) 4.8 % (0.0-7.0); Hematocrit 41.5 % (36.0-46.0); Hemoglobin 13.5 g/dL (12.2-16.2); Lymphocytes # (auto) 1.5 uL; Lymphocytes % (auto) 35.5 % (10.0-50.0); Mean Corpuscular Hemoglobin 30.6 pg (28.0-32.0); Mean Corpuscular Hgb Conc. 32.4 g/dL (32.0-36.0); Mean Corpuscular Volume 94.4 fL (80.0-100.0); Monocytes # (auto) 0.4 uL; Monocytes % (auto) 9.2 % (0.0-12.0); Neutrophils % (auto) 49.6 % (37.0-80.0); Platelet Count (auto) 176 10^3/uL (140-450); White Blood Cell 4.1 10^3/uL (4.4-10.8)
[2018-04-13 03:20] LABS: Potassium 3.7 mmol/L (3.5-5.1)
[2018-04-13 03:27] LABS: Albumin 3.9 g/dL (3.4-5.0); BUN/Creatinine Ratio 9.6; Bilirubin, Total 0.5 mg/dL (0.2-1.0); Calcium 8.7 mg/dL (8.5-10.1); Total Protein 7.5 g/dL (6.4-8.2)
[2018-04-13 04:08] LABS: Urine Bacteria NONE SEEN /hpf (None Seen); Urine Blood Negative /uL (Negative); Urine Specific Gravity 1.004 (1.001-1.035); Urine WBC <1 /hpf (0 - 5)
[2018-04-13] MEDS ORDERED: SODIUM CHLORIDE 0.9% 1,000 ML IV ONE (07:58)
[2018-04-13] MEDS ORDERED: DEXAMETHASONE SOD PHOS 4 MG/1ML SDV INJ IV ONE (08:00)
[2018-04-13] MEDS ORDERED: diphenhdrAMINE HCL 50 MG/1 ML VL IV ONE (08:00)
[2018-04-13 08:54] VITALS: BP 166/90
== END 2018-04-13 10:32 | disposition home or self-care (01) ==
LOC: ER 01:52 → EDBD 01:52 → ER 10:32
DX: L50.0 Allergic urticaria (principal); R51 Headache; T47.1X5A Adverse effect of other antacids and anti-gastric-secretion drugs, initial encounter; I10 Essential (primary) hypertension; K21.9 Gastro-esophageal reflux disease without esophagitis; E78.5 Hyperlipidemia, unspecified; E07.9 Disorder of thyroid, unspecified; F41.9 Anxiety disorder, unspecified; F32.9 Major depressive disorder, single episode, unspecified; Z87.440 Personal history of urinary (tract) infections; Z95.0 Presence of cardiac pacemaker; Z90.49 Acquired absence of other specified parts of digestive tract; Z90.710 Acquired absence of both cervix and uterus; Z88.1 Allergy status to other antibiotic agents; Z88.2 Allergy status to sulfonamides; Z88.6 Allergy status to analgesic agent; Z88.8 Allergy status to other drugs, medicaments and biological substances; Y92.89 Other specified places as the place of occurrence of the external cause
CPT/HCPCS: 36415; 70450; 71046; 80053; 81001; 83735; 84443; 85025; 93005; 96374; 96375; 99284; J1100; J1200; J7030

== ENCOUNTER 2018-04-30 12:17 | Emergency (ER) | payer MEDICARE, MEDICAID ==
[~2018-04-30] VITALS: Ht 154.9 cm; Wt 59.0 kg
[2018-04-30] MEDS ORDERED: DOCUSATE SOD 100 MG CAP PO ONE (15:45)
[2018-04-30 15:55] VITALS: BP 143/64
[2018-04-30 16:10] LABS: Basophils # (auto) 0.1 uL; Eosinophils # (auto) 0.1 uL; Eosinophils % (auto) 2.2 % (0.0-7.0); Hematocrit 37.7 % (36.0-46.0); Hemoglobin 12.6 g/dL (12.2-16.2); Lymphocytes # (auto) 1.6 uL; Mean Corpuscular Hemoglobin 31.3 pg (28.0-32.0); Mean Corpuscular Hgb Conc. 33.4 g/dL (32.0-36.0); Mean Corpuscular Volume 93.6 fL (80.0-100.0); Monocytes # (auto) 0.4 uL; Monocytes % (auto) 6.8 % (0.0-12.0); Neutrophils # (auto) 3.6 uL; Nucleated Red Blood Cells % 0.1 %; Platelet Count (auto) 185 10^3/uL (140-450); Red Blood Cells 4.03 10^6/uL (4.0-5.20); Red Cell Distribution Width 13.7 % (11.8-14.3); White Blood Cell 5.7 10^3/uL (4.4-10.8)
[2018-04-30 16:21] LABS: Albumin 3.5 g/dL (3.4-5.0); Anion Gap 7 (5-15); Aspartate Aminotransferase 21 U/L (15-37); Calcium 8.6 mg/dL (8.5-10.1); Carbon Dioxide 25 mmol/L (21-32); Chloride 108 mmol/L (98-107); GFR African American > 60 mL/min; GFR Non-African American > 60 mL/min; Glucose 94 mg/dL (74-106); Potassium 3.6 mmol/L (3.5-5.1); Sodium 140 mmol/L (136-145)
[2018-04-30 16:29] LABS: Alkaline Phosphatase 75 U/L (45-117); BUN/Creatinine Ratio 12.2; Bilirubin, Total 0.4 mg/dL (0.2-1.0); Blood Urea Nitrogen 9 mg/dL (7-18)
[2018-04-30 16:31] LABS: Alanine Aminotransferase 19 U/L (13-56)
== END 2018-04-30 17:26 | disposition home or self-care (01) ==
LOC: ER 12:17 → EDBD 12:17 → ER 17:26
DX: K59.00 Constipation, unspecified (principal); K21.9 Gastro-esophageal reflux disease without esophagitis; E78.5 Hyperlipidemia, unspecified; I10 Essential (primary) hypertension; Z87.440 Personal history of urinary (tract) infections; Z90.49 Acquired absence of other specified parts of digestive tract; Z88.1 Allergy status to other antibiotic agents; Z88.2 Allergy status to sulfonamides; Z88.6 Allergy status to analgesic agent; Z88.8 Allergy status to other drugs, medicaments and biological substances
CPT/HCPCS: 36415; 74176; 80053; 85025

== ENCOUNTER 2018-06-27 18:43 | Emergency (ER) | payer MEDICARE, MEDICAID ==
[~2018-06-27] VITALS: Ht 154.9 cm; Wt 60.3 kg
[2018-06-27 19:47] LABS: Basophils # (auto) 0 uL; Basophils % (auto) 0.3 % (0.0-2.0); Eosinophils # (auto) 0 uL; Hematocrit 42.1 % (36.0-46.0); Hemoglobin 13.8 g/dL (12.2-16.2); Lymphocytes # (auto) 0.7 uL; Lymphocytes % (auto) 12.5 % (10.0-50.0); Mean Corpuscular Hemoglobin 30.4 pg (28.0-32.0); Mean Corpuscular Hgb Conc. 32.7 g/dL (32.0-36.0); Mean Corpuscular Volume 92.8 fL (80.0-100.0); Monocytes # (auto) 0.1 uL; Monocytes % (auto) 1.8 % (0.0-12.0); Neutrophils # (auto) 4.9 uL; Neutrophils % (auto) 85.4 % (37.0-80.0); Nucleated Red Blood Cells % 0.1 %; Platelet Count (auto) 217 10^3/uL (140-450); Red Blood Cells 4.54 10^6/uL (4.0-5.20); Red Cell Distribution Width 13.8 % (11.8-14.3); White Blood Cell 5.8 10^3/uL (4.4-10.8)
[2018-06-27 20:37] LABS: INR 0.95 (0.9-1.15); Partial Thromboplastin Time 25.7 sec (23.78-33.04); Prothrombin Time 10.2 sec (9.27-12.13)
[2018-06-27 20:48] LABS: Albumin 3.9 g/dL (3.4-5.0); Anion Gap 7 (5-15); Blood Urea Nitrogen 9 mg/dL (7-18); Calcium 9.1 mg/dL (8.5-10.1); Carbon Dioxide 23 mmol/L (21-32); Chloride 109 mmol/L (98-107); Glucose 126 mg/dL (74-106); Potassium 3.9 mmol/L (3.5-5.1); Sodium 139 mmol/L (136-145)
[2018-06-27 20:51] LABS: Alanine Aminotransferase 18 U/L (13-56); Alkaline Phosphatase 81 U/L (45-117); Aspartate Aminotransferase 25 U/L (15-37); BUN/Creatinine Ratio 11.5; Bilirubin, Total 0.4 mg/dL (0.2-1.0); GFR African American 91 mL/min; GFR Non-African American 75 mL/min; Total Protein 7.7 g/dL (6.4-8.2)
[2018-06-28] MEDS ORDERED: LORazepam 2MG/ML-1ML VIAL IV ONE (05:00)
[2018-06-28] MEDS ORDERED: ACETAMINOPHEN 325 MG TAB PO ONE (05:30)
[2018-06-28 05:43] VITALS: BP 149/81
== END 2018-06-28 06:02 | disposition home or self-care (01) ==
LOC: ER 18:57
DX: R07.9 Chest pain, unspecified (principal); R53.1 Weakness; I10 Essential (primary) hypertension; R51 Headache; K21.9 Gastro-esophageal reflux disease without esophagitis; E78.5 Hyperlipidemia, unspecified; Z87.891 Personal history of nicotine dependence; Z90.49 Acquired absence of other specified parts of digestive tract; Z95.0 Presence of cardiac pacemaker; Z86.39 Personal history of other endocrine, nutritional and metabolic disease; Z87.440 Personal history of urinary (tract) infections
CPT/HCPCS: 36415; 71045; 80053; 83880; 84443; 84484; 85025; 85379; 85610; 85730; 93005; 96374; 99284; J2060

== ENCOUNTER 2018-07-17 21:46 | Emergency (ER) | payer MEDICARE, MEDICAID ==
[~2018-07-17] VITALS: Ht 157.5 cm; Wt 54.4 kg
[2018-07-18 02:57] LABS: Basophils # (auto) 0 uL; Basophils % (auto) 0.6 % (0.0-2.0); Eosinophils # (auto) 0.1 uL; Eosinophils % (auto) 2.3 % (0.0-7.0); Hematocrit 39.2 % (36.0-46.0); Hemoglobin 13.1 g/dL (12.2-16.2); Lymphocytes # (auto) 1.6 uL; Lymphocytes % (auto) 34.1 % (10.0-50.0); Mean Corpuscular Hemoglobin 30.9 pg (28.0-32.0); Mean Corpuscular Hgb Conc. 33.4 g/dL (32.0-36.0); Mean Corpuscular Volume 92.4 fL (80.0-100.0); Monocytes # (auto) 0.4 uL; Monocytes % (auto) 9.1 % (0.0-12.0); Neutrophils # (auto) 2.6 uL; Neutrophils % (auto) 53.9 % (37.0-80.0); Nucleated Red Blood Cells % 0.1 %; Platelet Count (auto) 182 10^3/uL (140-450); Red Blood Cells 4.25 10^6/uL (4.0-5.20); Red Cell Distribution Width 14.1 % (11.8-14.3); White Blood Cell 4.8 10^3/uL (4.4-10.8)
[2018-07-18 03:10] LABS: INR 0.97 (0.9-1.15); Partial Thromboplastin Time 25.3 sec (23.78-33.04); Prothrombin Time 10.4 sec (9.27-12.13)
[2018-07-18 03:16] LABS: Alanine Aminotransferase 13 U/L (13-56); Albumin 3.9 g/dL (3.4-5.0); Anion Gap 8 (5-15); Aspartate Aminotransferase 17 U/L (15-37); BUN/Creatinine Ratio 15.5; Blood Urea Nitrogen 11 mg/dL (7-18); Calcium 8.8 mg/dL (8.5-10.1); Carbon Dioxide 25 mmol/L (21-32); Chloride 110 mmol/L (98-107); GFR African American 102 mL/min; GFR Non-African American 84 mL/min; Glucose 89 mg/dL (74-106); Magnesium 2.6 mg/dL (1.6-2.6); Sodium 143 mmol/L (136-145)
[2018-07-18 03:20] LABS: Alkaline Phosphatase 76 U/L (45-117); Bilirubin, Total 0.6 mg/dL (0.2-1.0); Total Protein 7.2 g/dL (6.4-8.2)
[2018-07-18 06:04] VITALS: BP 142/67
== END 2018-07-18 07:22 | disposition home or self-care (01) ==
LOC: EDBD 21:46 → ER 21:51
DX: M54.12 Radiculopathy, cervical region (principal); K21.9 Gastro-esophageal reflux disease without esophagitis; E78.5 Hyperlipidemia, unspecified; I10 Essential (primary) hypertension; R06.02 Shortness of breath; Z90.49 Acquired absence of other specified parts of digestive tract; Z86.39 Personal history of other endocrine, nutritional and metabolic disease; Z87.440 Personal history of urinary (tract) infections; Z87.891 Personal history of nicotine dependence; Z88.1 Allergy status to other antibiotic agents; Z88.2 Allergy status to sulfonamides; Z88.6 Allergy status to analgesic agent; Z88.8 Allergy status to other drugs, medicaments and biological substances; Z79.899 Other long term (current) drug therapy
CPT/HCPCS: 36415; 70450; 71045; 80053; 83735; 83880; 84484; 85025; 85610; 85730; 93005; 93017; 94761

== ENCOUNTER 2018-09-26 07:59 | Inpatient (IN) | payer MEDICARE, MEDICAID | END 2018-09-28 15:15 | disposition home or self-care (01) | LOC: CATH 07:59 → TELE-CENTR 08:00 ==

== ENCOUNTER 2018-09-29 22:17 | Inpatient (IN) | payer MEDICARE, MEDICAID | END 2018-10-04 16:00 | disposition home health service (06) | LOC: TELE 09-30 04:58 → TELE-EAST 09-30 11:27 → ER 22:17 | DX: J93.9 Pneumothorax, unspecified (principal); Z95.0 Presence of cardiac pacemaker; I10 Essential (primary) hypertension; K21.9 Gastro-esophageal reflux disease without esophagitis; R53.1 Weakness ==

== ENCOUNTER 2018-10-09 17:43 | Inpatient (IN) | payer MEDICARE, MEDICAID ==
[~2018-10-09] VITALS: Ht 154.9 cm; Wt 56.0 kg
[~2018-10-09 17:43] MED LIST changes: -ACET-6 PO; +ASPI81TA27 PO; +EZET10TA6 PO; +FOLI1TAB6 PO; -FOLITAB22 PO; -LEVO1TAB PO; +LEVO25TA6 PO; +ONDA4TAB5 PO; +PANT40T PO; -POLYSOL5 EACHEYE; -Pantoprazole Sodium Sesquihydr PO; -ROSU20TA14 PO; -SUCR1TAB38 OR
[2018-10-09] MEDS ORDERED: SODIUM CHLORIDE 0.9% 500 ML IV ONE (18:45)
[2018-10-09] MEDS ORDERED: ACETAMINOPHEN 500 MG TAB PO ONE (19:00)
[2018-10-09 19:29] LABS: Basophils # (auto) 0.1 uL; Eosinophils # (auto) 0.6 uL; Eosinophils % (auto) 10.6 % (0.0-7.0); Hematocrit 29.9 % (36.0-46.0); Hemoglobin 10.1 g/dL (12.2-16.2); Lymphocytes # (auto) 1.3 uL; Lymphocytes % (auto) 22.6 % (10.0-50.0); Mean Corpuscular Hemoglobin 31.3 pg (28.0-32.0); Mean Corpuscular Hgb Conc. 33.7 g/dL (32.0-36.0); Monocytes # (auto) 0.5 uL; Monocytes % (auto) 9.1 % (0.0-12.0); Neutrophils # (auto) 3.4 uL; Neutrophils % (auto) 56.7 % (37.0-80.0); Platelet Count (auto) 275 10^3/uL (140-450); Red Blood Cells 3.22 10^6/uL (4.0-5.20); Red Cell Distribution Width 14.2 % (11.8-14.3)
[2018-10-09 19:43] LABS: INR 0.94 (0.9-1.15); Partial Thromboplastin Time 25.7 sec (23.64-32.05)
[2018-10-09 19:44] LABS: Alanine Aminotransferase 14 U/L (13-56); Albumin 3.1 g/dL (3.4-5.0); Anion Gap 10 (5-15); Blood Urea Nitrogen 8 mg/dL (7-18); Calcium 8.1 mg/dL (8.5-10.1); Carbon Dioxide 23 mmol/L (21-32); Chloride 102 mmol/L (98-107); Glucose 85 mg/dL (74-106); Potassium 4.4 mmol/L (3.5-5.1); Sodium 135 mmol/L (136-145)
[2018-10-09 19:49] LABS: Alkaline Phosphatase 65 U/L (45-117); Aspartate Aminotransferase 19 U/L (15-37); BUN/Creatinine Ratio 9.9; Bilirubin, Total 0.5 mg/dL (0.2-1.0); GFR African American 87 mL/min; GFR Non-African American 72 mL/min; Total Protein 6.1 g/dL (6.4-8.2)
[2018-10-09] MEDS ORDERED: IOHEXOL 350 MG/ML 100ML IJ ONE (20:38)
[2018-10-10] MEDS ORDERED: ACETAMINOPHEN 325 MG TAB PO PRN (02:30)
[2018-10-10] MEDS ORDERED: CALCIUM ACETATE 667 MG CAP PO ONE (02:30)
[2018-10-10] MEDS ORDERED: TEMAZEPAM 15 MG CAP PO PRN (02:30)
[2018-10-10] MEDS ORDERED: ONDANSETRON HCL 4 MG/2 ML VIAL IV PRN (02:30)
--- NOTE | 2018-10-10 04:31 | NUR ---
MS admit from ER CLIF,ANTWON Moore admitted to tele/MS then SBAR received from BRENTON Leroy - ER. Patient oriented by ZAINA DIAMOND, primary RN, to unit, room, bed, and unit policies regarding patient care and visiting hours. PT A&O x4, speaking with Ever RN, resource RN. Patient weighed by bedscale and encouraged to call if she needs something. Bed in low position with HOB in semi-Ball's position. Call light within reach. All questions and concerns addressed, patient verbalized understanding.
[2018-10-10 05:00] VITALS: BP 133/85
[2018-10-10] MEDS ORDERED: GABAPENTIN 300 MG CAP PO SCH (06:00)
[2018-10-10] MEDS: LEVOTHYROXINE SODIUM 25 MCG TAB PO SCH (06:34)
--- NOTE | 2018-10-10 07:30 | NUR ---
OPENING SHIFT NOTE: Received report from NOC RNVera. Assumed care of patient. Patient resting in bed, denies pain. Dressing to left chest is C/D/I. Bed in lowest position, rails x2 up and call light within reach. Update on plan of care. Will continue to monitor.
[2018-10-10 09:00] VITALS: BP 132/72
[2018-10-10] MEDS ORDERED: ENOXAPARIN SOD 60 MG/0.6 ML SYRINGE SC SCH (10:00)
[2018-10-10] MEDS ORDERED: FAMOTIDINE 20 MG TAB PO SCH (10:00)
[2018-10-10] MEDS: PANTOPRAZOLE 40 MG TAB PO SCH (10:35)
[2018-10-10] MEDS: FOLIC ACID 1 MG TAB PO SCH (10:37)
--- NOTE | 2018-10-10 11:48 | NUR ---
WOUND CARE NOTE: Wound care in to see patient per wound care request regarding "Left sided chest wound from chest tube". Bedside nurse took photograph of patient's wound upon admission for reference. Patient is 82 years old female with admitting diagnosis of Peripheral Pulmonary Embolism. Patient is resting in bed in Rm. 277A. She's awake, alert and oriented. Patient is in no stated pain at this time. She's ambulatory and self turn and reposition. Her Gera score is 21. Patient has sutured incision to L lateral chest. She had chest tube placement ten days ago and recently removed and discharged home. She states she came back as site was bleeding. Her L lateral chest incision is cleansed in E.D. and Surgicel applied. Patient has clean, dry sterile dressing to her L lateral chest incision. Surrounding skin has scattered ecchymosis, no drainage/odor noted.No pressure injury issue noted. Patient wear disposable adult brief which she states prefer to use for protection as she gets some "accidents" when sneeze or laugh. Patient's education provided regarding adult briefs contribution to skin breakdown, verbalized understanding and states she still prefers to wear it for protection. BRENTON Noland made aware. Patient tolerated skin examination well. No further wound care monitoring needed at this time. RECOMMENDATION: PRN dressing change to L lateral chest wound per MD order, dietary consult due to presence of wound, redistribute pressure points with pillows, elevate heels on pillows. Addendum: 10/10/18 at 1545 by Deedee Ambriz RN Amended: Links added.
[2018-10-10 12:30] VITALS: BP 135/64
--- NOTE | 2018-10-10 14:48 | NUR ---
PAIN: Patient c/o pain to left lateral chest that radiates to sternum. Pain is 8/10. Patient is also requesting her home medications. Paged Dr Mcqueen for orders.
--- NOTE | 2018-10-10 14:55 | NUR ---
MD: T/C from Dr Mcqueen. Reviewed home medication and orders received.
[2018-10-10] MEDS ORDERED: MORPHINE SULF INJ 2 MG/ML SYRINGE 1ML IV ONE ×2 (15:00→15:30)
[2018-10-10] MEDS ORDERED: KETO10TA PO (16:08)
[2018-10-10 17:07] VITALS: BP 136/76
--- NOTE | 2018-10-10 19:30 | NUR ---
CLOSING SHIFT NOTE: Report given to NOC Blanche FARRIS. Endorsed care of patient.
--- NOTE | 2018-10-10 20:00 | NUR ---
RECEIVED PT IN BED, A/O X4, IN NO ACUTE DISTRESS, DENIES PAIN. POC REVIEWED WITH PT, VERBALIZED UNDERSTANDING. DSG TO LEFT UPPER CHEST AND LEFT LATERAL CHEST CLEAN, DRY AND INTACT. CALL LIGHT WITHIN REACH, ENCOURAGED TO CALL IF HELP IS NEEDED, SIDE RAILS UP X2, BED IN LOWEST LOCKED POSITION, NON SKID SOCKS ON. CONTINUE CARE.
--- NOTE | 2018-10-10 21:42 | NUR ---
RECEIVED CALL FROM Jordy DAWN ASSOCIATE DIRECTOR CAREER SERVICES REGARDING PAIN MGT, INFORMED ASSOCIATE DIRECTOR CAREER SERVICES, PT TAKES KETOROLAC AT HOME, PER ASSOCIATE DIRECTOR CAREER SERVICES, HE WILL REVIEW PT'S CHART. PT INFORMED, CONTINUE CARE. Addendum: 10/10/18 at 2301 by Blanche Cox RN ASSOCIATE DIRECTOR CAREER SERVICES ORDERED TRAMADOL, MEDICATION ON PT'S ALLERGIES. WILL CLARIFY WITH ASSOCIATE DIRECTOR CAREER SERVICES. PT RESTING AT THIS TIME, DENIES PAIN. CONTINUE CARE.
[2018-10-10 21:48] VITALS: BP 107/61
[2018-10-10] MEDS ORDERED: traMADol HCL 50 MG TAB PO PRN (22:00)
[2018-10-10] MEDS: GABAPENTIN 300 MG CAP PO SCH (22:33)
[2018-10-10] MEDS: LORazepam 0.5 MG TAB PO SCH (22:33)
[2018-10-10] MEDS: ENOXAPARIN SOD 60 MG/0.6 ML SYRINGE SC SCH (22:34)
[2018-10-11 05:04] VITALS: BP 105/57
[2018-10-11] MEDS: LEVOTHYROXINE SODIUM 25 MCG TAB PO SCH (06:02)
[2018-10-11 06:55] LABS: BUN/Creatinine Ratio 15.4; Calcium 8.6 mg/dL (8.5-10.1)
[2018-10-11 08:00] VITALS: BP 109/65
[2018-10-11 08:09] VITALS: BP 109/65
[2018-10-11] MEDS: ASPirin-EC 81 mg tab PO SCH (09:24)
[2018-10-11] MEDS: GABAPENTIN 300 MG CAP PO SCH ×2 (09:24→21:42)
[2018-10-11] MEDS: FOLIC ACID 1 MG TAB PO SCH (09:24)
[2018-10-11] MEDS: CITALOPRAM HYDROBR 20 MG TAB PO SCH (09:24)
[2018-10-11] MEDS: ENOXAPARIN SOD 60 MG/0.6 ML SYRINGE SC SCH ×2 (09:25→21:42)
[2018-10-11] MEDS: FAMOTIDINE 20 MG TAB PO SCH (09:25)
[2018-10-11] MEDS: PANTOPRAZOLE 40 MG TAB PO SCH (09:25)
[2018-10-11] MEDS: EZETIMIBE 10 MG PO SCH (09:26)
[2018-10-11] MEDS: OXYBUTYNIN CHLORIDE 5 MG PO SCH (09:26)
--- NOTE | 2018-10-11 11:18 | NUR ---
Nutrition consult/assessment Notes please see attached link for complete assessment Est. Needs BW [id number] kcal (25-30 kcal/kgBW), 55-66 gms pro (1.0-1.2 gms/kgBW). Will continue to monitor pertinent labs and reassess nutrient need prn Addendum: 10/11/18 at [address] Amended: Links added.
[2018-10-11 12:30] VITALS: BP 133/41
[2018-10-11] MEDS ORDERED: ACETAMINOPHEN 325 MG TAB PO PRN (15:45)
--- NOTE | 2018-10-11 15:45 | NUR ---
PT REQUESTS TO HAVE LEXAPRO 20MG DAILY, PT STATED SHE TAKES LEXAPRO AT HOME. DR. WATSON NOTIFIED. NEW ORDER OBTAINED: LEXAPRO 20MG QPM. WILL CARRY OUT ORDER.
--- NOTE | 2018-10-11 15:56 | NUR ---
LEXAPRO IS NOT AVAILABLE PER PHARMACIST [facility]. PT IS ON CELEXA 40 DAILY. WILL EXPLAIN TO PT.
[2018-10-11] MEDS: IBUPROFEN 400 MG TAB PO PRN (16:08)
--- NOTE | 2018-10-11 16:19 | NUR ---
The pt was interested in a Power of Refrigerator [employer]az[employer]. Tucking Machine Operator took one to the pt.
[2018-10-11 17:00] VITALS: BP 152/79
--- NOTE | 2018-10-11 20:00 | NUR ---
RECEIVED PT IN BED, A/O X4, IN NO ACUTE DISTRESS, DENIES PAIN. POC REVIEWED WITH PT, VERBALIZED UNDERSTANDING. DSG TO LEFT UPPER CHEST AND LEFT LATERAL CHEST CLEAN, DRY AND INTACT. CALL LIGHT WITHIN REACH, ENCOURAGED TO CALL IF HELP IS NEEDED, SIDE RAILS UP X2, BED IN LOWEST LOCKED POSITION, PIERRE HOSE APPLIED, NON SKID SOCKS ON. CONTINUE CARE.
[2018-10-11] MEDS: LORazepam 0.5 MG TAB PO SCH (21:42)
[2018-10-11 22:00] VITALS: BP 105/62
[2018-10-12] MEDS: IBUPROFEN 400 MG TAB PO PRN ×2 (00:29→21:29)
--- NOTE | 2018-10-12 04:40 | NUR ---
L LATERAL CHEST DSG CHANGE DONE WOUND CLEANSED WITH NS, PATTED DRY WITH STERILE GAUZE. NO BLEEDING NOTED, SITE WITH INTACT SUTURES AND WITH BRUISING. STERI STRIPS APPLIED, COVERED WITH OPTIFOAM, TOLERATED WELL. CONTINUE CARE.
[2018-10-12 04:49] VITALS: BP 111/67
[2018-10-12] MEDS: LEVOTHYROXINE SODIUM 25 MCG TAB PO SCH (06:11)
[2018-10-12 08:21] VITALS: BP 123/65
[2018-10-12] MEDS: OXYBUTYNIN CHLORIDE 5 MG PO SCH (10:00)
[2018-10-12] MEDS: EZETIMIBE 10 MG PO SCH (10:00)
--- NOTE | 2018-10-12 10:15 | NUR ---
Re: medication Patient stated that they would like to have the pepcid towards the dinner time.
[2018-10-12] MEDS: PANTOPRAZOLE 40 MG TAB PO SCH ×2 (10:28→21:29)
[2018-10-12] MEDS: ENOXAPARIN SOD 60 MG/0.6 ML SYRINGE SC SCH ×2 (10:28→21:29)
[2018-10-12] MEDS: ASPirin-EC 81 mg tab PO SCH (10:28)
[2018-10-12] MEDS: GABAPENTIN 300 MG CAP PO SCH ×2 (10:28→21:28)
[2018-10-12] MEDS: FOLIC ACID 1 MG TAB PO SCH (10:28)
[2018-10-12] MEDS: CITALOPRAM HYDROBR 20 MG TAB PO SCH (10:28)
[2018-10-12 12:30] VITALS: BP 107/66
[2018-10-12] MEDS: KETOROLAC TROMETH 15 mg/ml 1ML VL IV PRN ×2 (16:29→23:12)
[2018-10-12] MEDS: FAMOTIDINE 20 MG TAB PO SCH (16:49)
[2018-10-12 17:11] LABS: Hematocrit 34.3 % (36.0-46.0); Hemoglobin 11.3 g/dL (12.2-16.2)
[2018-10-12 17:14] VITALS: BP 130/76
--- NOTE | 2018-10-12 19:30 | NUR ---
OPENING NOTE REPORT RECEIVED FROM DAY SHIFT RN PATIENT IS A/OX4 RESTING IN BED, ABLE TO ANSWER ALL QUESTIONS APPROPRIATELY. NO SOB OR DISTRESS AT THIS TIME. PHYSICAL ASSESSMENT DONE-SEE INTERVENTIONS. POC DISCUSSED WITH PATIENT. PIERRE HOSE ON BILATERAL LEGS. FALL PRECAUTIONS IN PLACE, CALL LIGHT WITHIN REACH.
[2018-10-12] MEDS: LORazepam 0.5 MG TAB PO SCH (21:29)
[2018-10-12 22:28] VITALS: BP 126/72
[2018-10-13 05:39] VITALS: BP 109/66
[2018-10-13] MEDS: LEVOTHYROXINE SODIUM 25 MCG TAB PO SCH (06:08)
--- NOTE | 2018-10-13 07:18 | NUR ---
CLOSING NOTE REPORT ENDORSED TO BRENTON MCGHEE PATIENT RESTING COMFORTABLY IN BED. NO S/S OF DISTRESS NOTED. PIERRE HOSE IN PLACE. DRESSING TO LEFT LATERAL CHEST C/D/I. CALL LIGHT WITHIN REACH
[2018-10-13 08:24] VITALS: BP 135/58
[2018-10-13] MEDS: EZETIMIBE 10 MG PO SCH (09:49)
[2018-10-13] MEDS: GABAPENTIN 300 MG CAP PO SCH ×2 (09:49→22:13)
[2018-10-13] MEDS: FAMOTIDINE 20 MG TAB PO SCH (09:49)
[2018-10-13] MEDS: PANTOPRAZOLE 40 MG TAB PO SCH ×2 (09:49→22:13)
[2018-10-13] MEDS: ASPirin-EC 81 mg tab PO SCH (09:49)
[2018-10-13] MEDS: FOLIC ACID 1 MG TAB PO SCH (09:49)
[2018-10-13] MEDS: OXYBUTYNIN CHLORIDE 5 MG PO SCH (09:49)
[2018-10-13] MEDS: ENOXAPARIN SOD 60 MG/0.6 ML SYRINGE SC SCH ×2 (09:50→22:13)
[2018-10-13] MEDS: CITALOPRAM HYDROBR 20 MG TAB PO SCH (10:00)
[2018-10-13] MEDS: KETOROLAC TROMETH 15 mg/ml 1ML VL IV PRN ×2 (12:50→19:59)
[2018-10-13 13:00] VITALS: BP 108/60
--- NOTE | 2018-10-13 16:00 | NUR ---
Wound Care Wound care provided to the left lateral side of the lungs and the left upper chest wall. Patient tolerated well and verbalized dressing care instructions. Dressing in place for the left lateral side of the lungs medi-strips with optifoam. Dressing provide to the left upper chest wall primary gauze pad with tegaderm. Patient tolerated well.
[2018-10-13 16:36] VITALS: BP 128/70
--- NOTE | 2018-10-13 19:30 | NUR ---
OPENING NOTE REPORT RECEIVED FROM DAY SHIFT RN PATIENT IS A/OX4 RESTING IN BED. PHYSICAL ASSESSMENT DONE-SEE INTERVENTIONS. PIERRE HOSE ON BILATERAL LEGS. CSM INTACT. DRESSING TO LEFT UPPER CHEST, PACEMAKER SITE C/D/I. DRESSING TO LEFT LATERAL CHEST, OLD CHEST TUBE SITE, ALSO C/D/I. POC DISCUSSED WITH PATIENT AND ALL QUESTIONS ANSWERED. WILL MONITOR Q1H PRN THROUGHOUT SHIFT, CALL LIGHT WITHIN REACH.
[2018-10-13 22:00] VITALS: BP 130/69
[2018-10-13] MEDS: LORazepam 0.5 MG TAB PO SCH (22:13)
[2018-10-13] MEDS: IBUPROFEN 400 MG TAB PO PRN (22:20)
[2018-10-14 05:00] VITALS: BP 106/59
[2018-10-14] MEDS: LEVOTHYROXINE SODIUM 25 MCG TAB PO SCH (06:25)
--- NOTE | 2018-10-14 06:57 | NUR ---
CLOSING PATIENT IS RESTING IN BED. NO S/S OF DISTRESS NOTED. DRESSING TO LEFT LATERAL CHEST IS C/D/I, NO DRAINAGE DURING SHIFT. PIERRE HOSE ON BILATERALLY. CALL LIGHT WITHIN REACH. WILL ENDORSE CARE TO AM SHIFT RN.
--- NOTE | 2018-10-14 07:30 | NUR ---
Opening Shift Note Assumed care of patient, awake and alert. No S/S of distress/SOB. Pain reported. Pain management information discussed with patient. Instructed on POC and to call for assist PRN, will continue to monitor for changes Q1hr and PRN.
[2018-10-14 08:00] VITALS: BP 123/75
[2018-10-14] MEDS: OXYBUTYNIN CHLORIDE 5 MG PO SCH (10:00)
[2018-10-14] MEDS: EZETIMIBE 10 MG PO SCH (10:00)
[2018-10-14] MEDS: CITALOPRAM HYDROBR 20 MG TAB PO SCH (10:10)
[2018-10-14] MEDS: ASPirin-EC 81 mg tab PO SCH (10:10)
[2018-10-14] MEDS: GABAPENTIN 300 MG CAP PO SCH (10:10)
[2018-10-14] MEDS: FAMOTIDINE 20 MG TAB PO SCH (10:10)
[2018-10-14] MEDS: FOLIC ACID 1 MG TAB PO SCH (10:10)
[2018-10-14] MEDS: PANTOPRAZOLE 40 MG TAB PO SCH (10:11)
[2018-10-14] MEDS: ENOXAPARIN SOD 60 MG/0.6 ML SYRINGE SC SCH (10:11)
[2018-10-14] MEDS: KETOROLAC TROMETH 15 mg/ml 1ML VL IV PRN (10:12)
--- NOTE | 2018-10-14 11:43 | NUR ---
Nutrition Follow-up Notes Wt.: 56.0 kg Pt was sleeping with no family by bedside. per records pt s/p removal of chest tubes. pt with no distress noted currently on regular diet with adequate PO of 75% x 6 per RN doc Est. Needs BW [id number] kcal (25-30 kcal/kgBW), 55-66 gms pro (1.0-1.2 gms/kgBW). Will continue to monitor pertinent labs and reassess nutrient need prn Labs: All nutrition related lab values wnl as of 10/11. no new labs today Skin: Gera scale 21, low risk,site of chest tube dry per RN doc GI: Pt has no BM reported per clinical documentation nurse. PES: Altered nutrition related lab values r/t current/chronic medical condition aeb mild hypoalb Will continue to monitor PO intake, skin status, pertinent labs and weight trend. F/u in 3-5 days. Rec.: 1.) consider cardiac diet. 2) consider ensure enlive 1 carton bid if PO is low. 3) continue current plan of care
[2018-10-14 12:00] VITALS: BP 136/83
[2018-10-14] MEDS ORDERED: APIXABAN 5 MG TAB PO SCH ×3 (12:45→22:00)
[2018-10-14] MEDS ORDERED: APIXABAN 5 MG TAB PO ONE (14:30)
[2018-10-14 17:00] VITALS: BP 121/72
--- NOTE | 2018-10-14 17:37 | NUR ---
assessment Patient will need a resumption order for Marisol Abbasi on discharge. Addendum: 10/14/18 at 1738 by Elisa MYERS Amended: Links added.
--- NOTE | 2018-10-14 18:05 | NUR ---
Discharge instructions given as ordered. Encourage to follow up with PMD as instructed. Wound pictures taken. All questions and concerns addressed. Patient verbalized understanding. IV removed with catheter intact, pressure dressing applied. Patient taken to [facility] via wheelchair with all personal belongings, accompanied by staff and family member. No distress noted at time of departure.
== END 2018-10-14 19:00 | disposition home health service (06) | DRG 176 ==
LOC: EDBD 17:43 → ER 17:43 → OVERFLOW 17:44 → WEST WING 10-10 04:33
PROVIDERS: ADMIT Nurse Practitioner; ATTEND Internal Medicine Nephrology
DX: I26.99 Other pulmonary embolism without acute cor pulmonale (principal); S21.102A Unspecified open wound of left front wall of thorax without penetration into thoracic cavity, initial encounter; E03.9 Hypothyroidism, unspecified; I10 Essential (primary) hypertension; I49.5 Sick sinus syndrome; E78.5 Hyperlipidemia, unspecified; K21.9 Gastro-esophageal reflux disease without esophagitis; X58.XXXA Exposure to other specified factors, initial encounter; Z79.01 Long term (current) use of anticoagulants; Z82.0 Family history of epilepsy and other diseases of the nervous system; Z82.49 Family history of ischemic heart disease and other diseases of the circulatory system; Z83.3 Family history of diabetes mellitus; Z90.49 Acquired absence of other specified parts of digestive tract; Z95.0 Presence of cardiac pacemaker; Y93.89 Activity, other specified; Y92.89 Other specified places as the place of occurrence of the external cause; Y99.8 Other external cause status; Z88.6 Allergy status to analgesic agent; Z88.5 Allergy status to narcotic agent; Z88.2 Allergy status to sulfonamides; Z88.8 Allergy status to other drugs, medicaments and biological substances
CPT/HCPCS: 36415; 71046; 71260; 80048; 80053; 84484; 85014; 85018; 85025; 85379; 85610; 85730; 86850; 86900; 86901; 87081; 93970; 94761; 96360; G0378; J2405

== ENCOUNTER 2019-04-16 01:52 | Emergency (ER) | payer MEDICARE, MEDICAID ==
[~2019-04-16] VITALS: Ht 154.9 cm; Wt 102.1 kg
[~2019-04-16 01:52] MED LIST changes: +ASPI-404 PO; -ASPI81TA27 PO; +EZET10TA22 PO; -EZET10TA6 PO; +KETO10TA PO; -ONDA4TAB5 PO
[2019-04-16 03:04] LABS: Basophils # (auto) 0 uL; Eosinophils # (auto) 0.2 uL; Eosinophils % (auto) 4.6 % (0.0-7.0); Hematocrit 35.6 % (36.0-46.0); Hemoglobin 11.6 g/dL (12.2-16.2); Lymphocytes # (auto) 1.3 uL; Lymphocytes % (auto) 31.1 % (10.0-50.0); Mean Corpuscular Hemoglobin 30.3 pg (28.0-32.0); Mean Corpuscular Hgb Conc. 32.7 g/dL (32.0-36.0); Mean Corpuscular Volume 92.6 fL (80.0-100.0); Monocytes # (auto) 0.4 uL; Monocytes % (auto) 9.8 % (0.0-12.0); Neutrophils # (auto) 2.3 uL; Neutrophils % (auto) 53.5 % (37.0-80.0); Nucleated Red Blood Cells % 0.1 %; Platelet Count (auto) 211 10^3/uL (140-450); Red Blood Cells 3.85 10^6/uL (4.0-5.20); White Blood Cell 4.2 10^3/uL (4.4-10.8)
[2019-04-16] MEDS: HYDROcodone-ACET 10/325MG TAB PO ONE (03:17)
[2019-04-16 03:21] LABS: Albumin 3.6 g/dL (3.4-5.0); Anion Gap 5 (5-15); Blood Urea Nitrogen 8 mg/dL (7-18); Calcium 8.9 mg/dL (8.5-10.1); Carbon Dioxide 27 mmol/L (21-32); Chloride 109 mmol/L (98-107); Glucose 94 mg/dL (74-106); Potassium 4.3 mmol/L (3.5-5.1); Sodium 141 mmol/L (136-145)
[2019-04-16 03:27] LABS: Alanine Aminotransferase 13 U/L (13-56); Alkaline Phosphatase 73 U/L (45-117); Aspartate Aminotransferase 19 U/L (15-37); BUN/Creatinine Ratio 12.1; Bilirubin, Total 0.4 mg/dL (0.2-1.0); GFR African American 110 mL/min; GFR Non-African American 91 mL/min; Total Protein 7.1 g/dL (6.4-8.2)
[2019-04-16] MEDS: VANCOMYCIN 1GM/250ML 250 ML IV ONE (03:35)
[2019-04-16] MEDS: LORazepam 0.5 MG TAB PO ONE (05:26)
[2019-04-16 06:00] VITALS: BP 162/68
== END 2019-04-16 06:58 | disposition home or self-care (01) ==
LOC: EDBD 01:52 → ER 01:55
DX: J02.9 Acute pharyngitis, unspecified (principal); F41.9 Anxiety disorder, unspecified; R51 Headache; K21.9 Gastro-esophageal reflux disease without esophagitis; E78.5 Hyperlipidemia, unspecified; I10 Essential (primary) hypertension
CPT/HCPCS: 36415; 70450; 80053; 84484; 85025; 87070; 87880; 93005; 96365; 99284; J3370

== ENCOUNTER 2019-05-23 08:44 | Emergency (ER) | payer MEDICARE, MEDICAID ==
[~2019-05-23] VITALS: Ht 152.4 cm; Wt 54.4 kg
[~2019-05-23 08:44] MED LIST changes: +RIVA10TA PO
[2019-05-23 09:42] LABS: Basophils # (auto) 0 uL; Basophils % (auto) 0.6 % (0.0-2.0); Eosinophils # (auto) 0.1 uL; Eosinophils % (auto) 1.9 % (0.0-7.0); Hematocrit 38.3 % (36.0-46.0); Hemoglobin 12.6 g/dL (12.2-16.2); Mean Corpuscular Hemoglobin 30.7 pg (28.0-32.0); Monocytes # (auto) 0.3 uL; Monocytes % (auto) 8.3 % (0.0-12.0); Neutrophils % (auto) 60.2 % (37.0-80.0); Platelet Count (auto) 189 10^3/uL (140-450); Red Blood Cells 4.12 10^6/uL (4.0-5.20); White Blood Cell 3.4 10^3/uL (4.4-10.8)
[2019-05-23 09:59] LABS: Alanine Aminotransferase 18 U/L (13-56); Albumin 3.7 g/dL (3.4-5.0); Anion Gap 6 (5-15); Blood Urea Nitrogen 8 mg/dL (7-18); Carbon Dioxide 25 mmol/L (21-32); Chloride 109 mmol/L (98-107); Glucose 93 mg/dL (74-106); Potassium 4.3 mmol/L (3.5-5.1); Sodium 140 mmol/L (136-145)
[2019-05-23 10:04] LABS: Alkaline Phosphatase 75 U/L (45-117); Aspartate Aminotransferase 25 U/L (15-37); BUN/Creatinine Ratio 11.9; Bilirubin, Total 0.6 mg/dL (0.2-1.0); GFR African American 108 mL/min; GFR Non-African American 90 mL/min; Total Protein 7.4 g/dL (6.4-8.2)
[2019-05-23 10:48] LABS: Urine WBC None Seen /hpf (0 - 5)
[2019-05-23 10:58] LABS: Urine Bacteria NONE SEEN /hpf (None Seen); Urine Blood Negative /uL (Negative); Urine Specific Gravity 1.006 (1.001-1.035)
[2019-05-23] MEDS ORDERED: MECLIZINE HCL 25 MG TAB PO ONE (11:15)
[2019-05-23 13:41] VITALS: BP 136/73
== END 2019-05-23 13:41 | disposition home or self-care (01) ==
LOC: ER 08:44 → EDBD 08:44 → ER 13:41
DX: R42 Dizziness and giddiness (principal); R11.0 Nausea; R51 Headache; K21.9 Gastro-esophageal reflux disease without esophagitis; E78.5 Hyperlipidemia, unspecified; I10 Essential (primary) hypertension; E07.9 Disorder of thyroid, unspecified
CPT/HCPCS: 36415; 70450; 71045; 80053; 81001; 84484; 85025; 93005; 99285; J8597

== ENCOUNTER 2019-05-27 14:00 | Emergency (ER) | payer MEDICARE, MEDICAID ==
[~2019-05-27] VITALS: Ht 154.9 cm; Wt 56.7 kg
[2019-05-27] MEDS ORDERED: SODIUM CHLORIDE 0.9% 500 ML IV ONE (14:25)
[2019-05-27 15:46] LABS: Basophils # (auto) 0 uL; Basophils % (auto) 0.9 % (0.0-2.0); Eosinophils # (auto) 0.1 uL; Eosinophils % (auto) 2.2 % (0.0-7.0); Hematocrit 36.7 % (36.0-46.0); Hemoglobin 12.2 g/dL (12.2-16.2); Lymphocytes # (auto) 1.2 uL; Lymphocytes % (auto) 29.1 % (10.0-50.0); Mean Corpuscular Hemoglobin 30.8 pg (28.0-32.0); Mean Corpuscular Hgb Conc. 33.2 g/dL (32.0-36.0); Mean Corpuscular Volume 92.6 fL (80.0-100.0); Monocytes # (auto) 0.3 uL; Monocytes % (auto) 8.2 % (0.0-12.0); Neutrophils # (auto) 2.4 uL; Neutrophils % (auto) 59.6 % (37.0-80.0); Nucleated Red Blood Cells % 0.1 %; Platelet Count (auto) 195 10^3/uL (140-450); Red Blood Cells 3.97 10^6/uL (4.0-5.20); Red Cell Distribution Width 13.9 % (11.8-14.3)
[2019-05-27 16:02] LABS: Alanine Aminotransferase 15 U/L (13-56); Albumin 3.6 g/dL (3.4-5.0); Anion Gap 5 (5-15); Aspartate Aminotransferase 16 U/L (15-37); Blood Urea Nitrogen 8 mg/dL (7-18); Calcium 8.2 mg/dL (8.5-10.1); Carbon Dioxide 26 mmol/L (21-32); Chloride 108 mmol/L (98-107); GFR African American 131 mL/min; GFR Non-African American 108 mL/min; Glucose 92 mg/dL (74-106); Potassium 3.4 mmol/L (3.5-5.1); Sodium 139 mmol/L (136-145)
[2019-05-27 16:07] LABS: Alkaline Phosphatase 68 U/L (45-117); Bilirubin, Total 0.4 mg/dL (0.2-1.0); Total Protein 7.3 g/dL (6.4-8.2)
[2019-05-27 17:52] VITALS: BP 190/84
== END 2019-05-27 19:25 | disposition home or self-care (01) ==
LOC: ER 14:00 → EDBD 14:00 → ER 19:25
DX: R07.89 Other chest pain (principal); R53.1 Weakness; R42 Dizziness and giddiness; K21.9 Gastro-esophageal reflux disease without esophagitis; E78.5 Hyperlipidemia, unspecified; I10 Essential (primary) hypertension; E07.9 Disorder of thyroid, unspecified; Z88.5 Allergy status to narcotic agent; Z88.2 Allergy status to sulfonamides; Z88.8 Allergy status to other drugs, medicaments and biological substances; Z88.1 Allergy status to other antibiotic agents
CPT/HCPCS: 36415; 71045; 80053; 84484; 85025; 93005; 96360; 99285; J7040

== ENCOUNTER 2019-06-05 13:16 | Emergency (ER) | payer MEDICARE, MEDICAID ==
[~2019-06-05] VITALS: Ht 167.6 cm; Wt 54.4 kg
[2019-06-05 13:42] VITALS: BP 129/72
== END 2019-06-05 14:05 | disposition home or self-care (01) ==
LOC: ER 13:16 → EDBD 13:16 → ER 14:05
DX: I16.0 Hypertensive urgency (principal); F41.8 Other specified anxiety disorders; F32.9 Major depressive disorder, single episode, unspecified; K21.9 Gastro-esophageal reflux disease without esophagitis; E78.5 Hyperlipidemia, unspecified; Z87.891 Personal history of nicotine dependence; Z90.49 Acquired absence of other specified parts of digestive tract; Z90.89 Acquired absence of other organs; Z95.0 Presence of cardiac pacemaker; Z86.73 Personal history of transient ischemic attack (TIA), and cerebral infarction without residual deficits; Z88.1 Allergy status to other antibiotic agents; Z88.5 Allergy status to narcotic agent; Z88.2 Allergy status to sulfonamides; Z88.8 Allergy status to other drugs, medicaments and biological substances; Z79.82 Long term (current) use of aspirin; Z79.899 Other long term (current) drug therapy
CPT/HCPCS: 93005

== ENCOUNTER 2019-12-12 21:57 | Emergency (ER) | payer MEDICARE, MEDICAID ==
[~2019-12-12] VITALS: Ht 154.9 cm; Wt 59.0 kg
[~2019-12-12 21:57] MED LIST changes: -ASPI-404 PO; +ASPI-543 PO; -LORA1TAB12 PO; +LORA1TAB23 PO
[2019-12-13] MEDS ORDERED: cloNIDine HCL 0.1 MG TAB PO ONE (00:15)
[2019-12-13 00:23] LABS: Basophils # (auto) 0 10 ^3/uL (0-0.2); Basophils % (auto) 0.5 % (0.0-2.0); Eosinophils # (auto) 0.1 10 ^3/uL (0-0.8); Eosinophils % (auto) 3.3 % (0.0-7.0); Hematocrit 34.3 % (36.0-46.0); Hemoglobin 11.2 g/dL (12.2-16.2); Lymphocytes # (auto) 1.5 10 ^3/uL (0.4-5.4); Lymphocytes % (auto) 35.4 % (10.0-50.0); Mean Corpuscular Hemoglobin 29.4 pg (28.0-32.0); Mean Corpuscular Hgb Conc. 32.7 g/dL (32.0-36.0); Mean Corpuscular Volume 89.9 fL (80.0-100.0); Monocytes # (auto) 0.5 10 ^3/uL (0-1.3); Neutrophils # (auto) 2.2 10 ^3/uL (1.6-8.6); Neutrophils % (auto) 49.8 % (37.0-80.0); Nucleated Red Blood Cells % 0.1 %; Platelet Count (auto) 203 10^3/uL (140-450); Red Blood Cells 3.82 10^6/uL (4.0-5.20); Red Cell Distribution Width 14.4 % (11.8-14.3); White Blood Cell 4.4 10^3/uL (4.4-10.8)
[2019-12-13 00:38] LABS: Alanine Aminotransferase 17 U/L (13-56); Albumin 3.7 g/dL (3.4-5.0); Anion Gap 6 (5-15); Aspartate Aminotransferase 17 U/L (15-37); BUN/Creatinine Ratio 15.5; Blood Urea Nitrogen 9 mg/dL (7-18); Calcium 8.8 mg/dL (8.5-10.1); Carbon Dioxide 26 mmol/L (21-32); Chloride 106 mmol/L (98-107); GFR African American 128 mL/min; GFR Non-African American 106 mL/min; Glucose 85 mg/dL (74-106); Potassium 3.3 mmol/L (3.5-5.1); Sodium 138 mmol/L (136-145)
[2019-12-13 00:43] LABS: Alkaline Phosphatase 60 U/L (45-117); Bilirubin, Total 0.4 mg/dL (0.2-1.0)
[2019-12-13 00:48] LABS: INR 1.36 (0.9-1.15); Partial Thromboplastin Time 34.2 sec (23.0-31.2)
[2019-12-13 05:30] VITALS: BP 127/69
== END 2019-12-13 07:00 | disposition home or self-care (01) ==
LOC: EDBD 21:57 → ER 21:57
DX: I16.0 Hypertensive urgency (principal); I10 Essential (primary) hypertension; R51 Headache; K21.9 Gastro-esophageal reflux disease without esophagitis; E78.5 Hyperlipidemia, unspecified; E07.9 Disorder of thyroid, unspecified; Z86.73 Personal history of transient ischemic attack (TIA), and cerebral infarction without residual deficits; Z87.440 Personal history of urinary (tract) infections; Z90.49 Acquired absence of other specified parts of digestive tract; Z88.2 Allergy status to sulfonamides; Z88.1 Allergy status to other antibiotic agents; Z88.8 Allergy status to other drugs, medicaments and biological substances; Z88.6 Allergy status to analgesic agent
CPT/HCPCS: 36415; 70450; 71045; 80053; 83735; 84484; 85025; 85610; 85730; 93005

== ENCOUNTER → 2019-12-20 | Emergency (ER) | payer MEDICARE, MEDICAID ==
[~2019-12-20] VITALS: Ht 154.9 cm; Wt 53.1 kg
[~2019-12-20] MED LIST changes: +LORazepam 2MG/ML-1ML VIAL IV ONE
[2019-12-20 22:19] LABS: Basophils # (auto) 0 10 ^3/uL (0-0.2); Basophils % (auto) 0.9 % (0.0-2.0); Eosinophils # (auto) 0.1 10 ^3/uL (0-0.8); Eosinophils % (auto) 1.5 % (0.0-7.0); Hematocrit 33.6 % (36.0-46.0); Hemoglobin 10.9 g/dL (12.2-16.2); Lymphocytes # (auto) 0.8 10 ^3/uL (0.4-5.4); Lymphocytes % (auto) 17.4 % (10.0-50.0); Mean Corpuscular Hemoglobin 29.3 pg (28.0-32.0); Mean Corpuscular Hgb Conc. 32.6 g/dL (32.0-36.0); Monocytes # (auto) 0.4 10 ^3/uL (0-1.3); Monocytes % (auto) 10.2 % (0.0-12.0); Nucleated Red Blood Cells % 0.1 %; Platelet Count (auto) 196 10^3/uL (140-450); Red Blood Cells 3.73 10^6/uL (4.0-5.20); White Blood Cell 4.4 10^3/uL (4.4-10.8)
[2019-12-20 22:27] LABS: INR 1.37 (0.9-1.15); Partial Thromboplastin Time 34.2 sec (23.0-31.2)
[2019-12-20 22:39] LABS: Albumin 3.6 g/dL (3.4-5.0); Anion Gap 8 (5-15); Blood Urea Nitrogen 13 mg/dL (7-18); Calcium 8.7 mg/dL (8.5-10.1); Carbon Dioxide 23 mmol/L (21-32); Chloride 103 mmol/L (98-107); Glucose 112 mg/dL (74-106); Magnesium 2.1 mg/dL (1.6-2.6); Potassium 3.6 mmol/L (3.5-5.1); Sodium 134 mmol/L (136-145)
[2019-12-20 22:44] LABS: Alanine Aminotransferase 15 U/L (13-56); Alkaline Phosphatase 62 U/L (45-117); Aspartate Aminotransferase 18 U/L (15-37); BUN/Creatinine Ratio 14.1; Bilirubin, Total 0.4 mg/dL (0.2-1.0); GFR African American 75 mL/min; GFR Non-African American 62 mL/min
[2019-12-21] VITALS: BP 122/60
== END | disposition home or self-care (01) ==
LOC: EDUNIT# 21:04 → EDBD 21:10 → ER 21:13
DX: F41.9 Anxiety disorder, unspecified (principal); R07.89 Other chest pain
CPT/HCPCS: 36415; 71045; 80053; 83735; 83880; 84443; 84484; 85025; 85610; 85730; 96374; 99285; J2060

== ENCOUNTER 2020-02-18 19:38 | Inpatient (IN) | payer OTHER, MEDICAID ==
[~2020-02-18] VITALS: Ht 153.7 cm; Wt 52.2 kg
[~2020-02-18 19:38] MED LIST changes: -LORazepam 2MG/ML-1ML VIAL IV ONE
[2020-02-18] MEDS ORDERED: SODIUM CHLORIDE 0.9% 1,000 ML IVB ONE (20:30)
[2020-02-18 21:33] LABS: Urine Bacteria FEW /hpf (None Seen); Urine Blood Negative /uL (Negative); Urine Specific Gravity 1.005 (1.001-1.035); Urine WBC <1 /hpf (0 - 5)
[2020-02-18 21:45] LABS: Basophils # (auto) 0 10 ^3/uL (0-0.2); Basophils % (auto) 0.7 % (0.0-2.0); Eosinophils # (auto) 0.1 10 ^3/uL (0-0.8); Eosinophils % (auto) 2.6 % (0.0-7.0); Hematocrit 37.3 % (36.0-46.0); Hemoglobin 11.8 g/dL (12.2-16.2); Lymphocytes # (auto) 1.1 10 ^3/uL (0.4-5.4); Lymphocytes % (auto) 29.1 % (10.0-50.0); Mean Corpuscular Hemoglobin 29.6 pg (28.0-32.0); Mean Corpuscular Hgb Conc. 31.6 g/dL (32.0-36.0); Mean Corpuscular Volume 93.6 fL (80.0-100.0); Monocytes # (auto) 0.3 10 ^3/uL (0-1.3); Monocytes % (auto) 8.5 % (0.0-12.0); Neutrophils # (auto) 2.1 10 ^3/uL (1.6-8.6); Neutrophils % (auto) 59.1 % (37.0-80.0); Platelet Count (auto) 191 10^3/uL (140-450); Red Blood Cells 3.98 10^6/uL (4.0-5.20); Red Cell Distribution Width 14.7 % (11.8-14.3); White Blood Cell 3.6 10^3/uL (4.4-10.8)
[2020-02-18 22:09] LABS: Albumin 3.5 g/dL (3.4-5.0); Anion Gap 8 (5-15); Blood Urea Nitrogen 6 mg/dL (7-18); Calcium 8.7 mg/dL (8.5-10.1); Carbon Dioxide 23 mmol/L (21-32); Chloride 110 mmol/L (98-107); Glucose 115 mg/dL (74-106); Potassium 3.2 mmol/L (3.5-5.1); Sodium 141 mmol/L (136-145)
[2020-02-18 22:13] LABS: Alanine Aminotransferase 16 U/L (13-56); Alkaline Phosphatase 59 U/L (45-117); Aspartate Aminotransferase 22 U/L (15-37); BUN/Creatinine Ratio 10.9; Bilirubin, Total 0.4 mg/dL (0.2-1.0); GFR African American 136 mL/min; GFR Non-African American 112 mL/min
[2020-02-18 22:24] LABS: Magnesium 2.1 mg/dL (1.6-2.6)
[2020-02-18] MEDS ORDERED: cloNIDine HCL 0.1 MG TAB PO PRN (23:00)
[2020-02-18] MEDS ORDERED: MECLIZINE HCL 25 MG TAB PO ONE (23:00)
[2020-02-18] MEDS ORDERED: MECLIZINE HCL 25 MG TAB PO PRN (23:00)
[2020-02-18] MEDS ORDERED: ACETAMINOPHEN 325 MG TAB PO PRN (23:00)
[2020-02-19 00:14] LABS: INR 1.13 (0.9-1.15)
[2020-02-19] MEDS: ONDANSETRON HCL 4 MG/2 ML VIAL IV PRN ×2 (03:49→23:16)
[2020-02-19] MEDS ORDERED: GABAPENTIN 300 MG CAP PO SCH ×2 (06:00→14:00)
[2020-02-19] MEDS ORDERED: LEVOTHYROXINE SODIUM 25 MCG TAB PO SCH (07:00)
[2020-02-19 07:22] LABS: Potassium 2.9 mmol/L (3.5-5.1)
[2020-02-19] MEDS ORDERED: SODIUM CHLORIDE 0.9% 500 ML IV ONE (07:30)
[2020-02-19] MEDS ORDERED: POTASSIUM EFFERVESENT TAB 25 MEQ PO ONE (07:30)
[2020-02-19] MEDS ORDERED: RIVAROXABAN 10 MG TAB PO SCH (10:00)
[2020-02-19] MEDS ORDERED: PANTOPRAZOLE 40 MG TAB PO SCH (10:00)
[2020-02-19] MEDS ORDERED: ASPirin 81 mg TAB PO SCH (10:00)
--- NOTE | 2020-02-19 10:24 | NUR ---
Received a call from Anne Marie at the [facility] [phone] transfer center, wanting to know if the patient has any procedures scheduled for today and if there were progress notes, express to her that there were no progress notes notes yet and she has no procedures ordered, but she has a order to transfer to SNF, gave number for the SS as she requested to talk about the SNF placement
[2020-02-19] MEDS: FOLIC ACID 1 MG TAB PO SCH (10:32)
[2020-02-19 12:13] VITALS: BP 137/72
[2020-02-19 13:00] VITALS: BP 137/72
[2020-02-19] MEDS: NYSTATIN (MOUTH-THROAT) 500,000 UNITS/5 ML SUSP MT SCH ×3 (13:09→21:58)
[2020-02-19] MEDS ORDERED: PNEUMOCOCCAL VACC POLYS 25 MCG/0.5 ML VIAL IM ONE (14:45)
--- NOTE | 2020-02-19 16:07 | NUR ---
Called Dr Kang regarding SNF placement and left a message.
--- NOTE | 2020-02-19 16:33 | NUR ---
Assessment Patient is an 84 year-old female who is alert and oriented and able to make her needs known. Prior to admission patient lived home alone and functioned independently. Patient has a walker and cane for home use. Patient can care for her on ADL's. Patient receives an amount from [id number] monthly. Advised patient there is a social service consult for SNF placement. Patient is refusing SNF placement and would like to return home with home health service. Informed patient she has the right to participate in all discharge planning. Patient verbalized understanding and agreed to discharge plan. Addendum: 02/19/20 at [facility] by FRANCO BRIGHT Amended: Links added.
[2020-02-19 17:00] VITALS: BP 120/65
[2020-02-19] MEDS: RIVAROXABAN 10 MG TAB PO SCH (17:35)
--- NOTE | 2020-02-19 19:40 | NUR ---
Opening Shift Note Assumed care of patient, awake and alert x4. No S/S of distress/SOB or pain. Call light is within reach, side rails up x2, bed is in the lowest position, bed alarm is on. Instructed on POC and to call for assist PRN, will continue to monitor for changes Q1hr and PRN.
[2020-02-19] MEDS: LORazepam 0.5 MG TAB PO SCH (21:58)
[2020-02-19] MEDS: GABAPENTIN 100 MG CAP PO SCH (21:59)
[2020-02-19 22:00] VITALS: BP 131/65
--- NOTE | 2020-02-19 22:00 | NUR ---
IV removal from left wrist due to infiltration IV DC'd with clean sterile technique, catheter fully intact. Pressure dressing applied to site. Patient tolerated well.
--- NOTE | 2020-02-19 22:46 | NUR ---
IV insertion IV access obtained, via clean sterile technique by inserting 22 gauge catheter at right hand after 3 attempt(s). IV secured properly. No trauma to site. Patient tolerated well.
[2020-02-20 05:00] VITALS: BP_SYST 110; BP_SYST 112; BP_SYST 114; BP_DIAS 68; BP_DIAS 71; BP_DIAS 76
--- NOTE | 2020-02-20 05:00 | NUR ---
Orthostatic Vital Signs Supine: BP 112/71, HR 70, 02 sat on room air 99% Sitting: BP 110/68, HR 70, 02 sat on room air 99% Standing: BP 114/76, HR 83, 02 sat on room air 97%
[2020-02-20] MEDS: NYSTATIN (MOUTH-THROAT) 500,000 UNITS/5 ML SUSP MT SCH ×4 (06:16→22:07)
[2020-02-20] MEDS: GABAPENTIN 100 MG CAP PO SCH ×3 (06:16→22:07)
[2020-02-20] MEDS: CITALOPRAM HYDROBR 20 MG TAB PO SCH (06:17)
[2020-02-20] MEDS: LEVOTHYROXINE SODIUM 25 MCG TAB PO SCH (06:17)
[2020-02-20 09:00] VITALS: BP 112/69
--- NOTE | 2020-02-20 09:12 | NUR ---
Called [facility] [phone] and spoke to Evie Williamson Cm regarding the patient refusing SNF placement, stated I should have called , verbalized to her That I did but he did not call me back, Stated that maybe she will, change her mind after Dr Kang talks he her, Stated to her that she needs a PT Eval to go to a SNF, ask her to give auth or transfer the patient.
[2020-02-20] MEDS: FOLIC ACID 1 MG TAB PO SCH (09:30)
[2020-02-20] MEDS: ASPirin-EC 81 mg tab PO SCH (09:30)
[2020-02-20] MEDS: PANTOPRAZOLE 40 MG TAB PO SCH (09:30)
[2020-02-20] MEDS: Ezetimibe (Zetia) 10 MG TAB PO SCH (09:30)
[2020-02-20] MEDS: OXYBUTYNIN CHLORIDE 5 MG PO SCH (09:31)
[2020-02-20 13:00] VITALS: BP 132/79
--- NOTE | 2020-02-20 13:50 | NUR ---
Dr Kang in to see the patient and can go to to SNF after seen by Dr Rothman.
--- NOTE | 2020-02-20 14:12 | NUR ---
Called [facility] [phone] and spoke with Evie Williamson CM gave authorization for [facility] #[id number] to take the patient to [facility], when we have a bed
--- NOTE | 2020-02-20 16:26 | NUR ---
Called [facility] spoke with Roger flight dispatcher and placed on Will Call with # [phone].
--- NOTE | 2020-02-20 16:46 | NUR ---
D/C civil engineering specialist Leta advised me patient is in agreement to be transfer to a [facility] nursing facility. Faxed [facility] patient has been accepted and they will assign bed and following MD when they received a in house covid test. Informed inspector multifocal lens Sam. YONI Williamson has [facility] on will call.
[2020-02-20 16:56] VITALS: BP 155/88
[2020-02-20] MEDS: RIVAROXABAN 10 MG TAB PO SCH (18:31)
--- NOTE | 2020-02-20 19:45 | NUR ---
Opening Shift Note Assumed care of patient, awake and alert. A&Ox4. Patient laying in bed. No S/S of distress/SOB or pain. Safety measures maintained by keeping the bed locked in lowest position, 2 side rails up, personal items and call light within reach. Bed alarm in place. Instructed on POC and to call for assist PRN, will continue to monitor for changes Q1hr and PRN.
[2020-02-20 22:00] VITALS: BP 146/74
[2020-02-20] MEDS: LORazepam 0.5 MG TAB PO SCH (22:07)
[2020-02-21] MEDS: ONDANSETRON HCL 4 MG/2 ML VIAL IV PRN ×2 (00:45→13:29)
[2020-02-21 05:30] VITALS: BP 109/73
[2020-02-21] MEDS: GABAPENTIN 100 MG CAP PO SCH ×2 (06:13→14:00)
[2020-02-21] MEDS: LEVOTHYROXINE SODIUM 25 MCG TAB PO SCH (06:13)
[2020-02-21] MEDS: NYSTATIN (MOUTH-THROAT) 500,000 UNITS/5 ML SUSP MT SCH ×2 (06:13→16:20)
[2020-02-21] MEDS: CITALOPRAM HYDROBR 20 MG TAB PO SCH (06:14)
--- NOTE | 2020-02-21 07:30 | NUR ---
Opening Shift Note Assumed care of patient, awake and alert. No S/S of distress/SOB or pain. Instructed on POC including being discharged to [facility]. Instructed to call for assist PRN. Bed is in lowest position and the call light is within reach of the patient. Will continue to monitor for changes Q1hr and PRN.
[2020-02-21 08:12] VITALS: BP 109/73
[2020-02-21 09:07] VITALS: BP 148/71
[2020-02-21] MEDS: OXYBUTYNIN CHLORIDE 5 MG PO SCH (10:00)
[2020-02-21] MEDS: ASPirin-EC 81 mg tab PO SCH (10:00)
[2020-02-21] MEDS: FOLIC ACID 1 MG TAB PO SCH (10:00)
[2020-02-21] MEDS: Ezetimibe (Zetia) 10 MG TAB PO SCH (10:00)
[2020-02-21] MEDS: PANTOPRAZOLE 40 MG TAB PO SCH (10:00)
--- NOTE | 2020-02-21 10:00 | NUR ---
D/C Planning Faxed Covid results to [facility]. Pending bed and accepting MD.
[2020-02-21 11:58] VITALS: BP 115/66
--- NOTE | 2020-02-21 12:00 | NUR ---
Dr. Kang at bedside Dr. Kang rounding on the patient. Asking to follow up on the transfer to [facility].
--- NOTE | 2020-02-21 12:23 | NUR ---
Results faxed to post acute COVID in house results faxed to [facility].
--- NOTE | 2020-02-21 12:43 | NUR ---
D/C Planning Placed follow up called to [facility] Spoke to Z[place]. Per Zaire patient has been accepted to room 210 bed 2 accepting MD, Dr. Scales. [facility] will transport patient at 15:00. Informed RN July.
--- NOTE | 2020-02-21 15:08 | NUR ---
Report called into [facility] Report called into [facility] facility. Spoke with Letitia. Patient going to room 210 bed 2. Awaiting transportation. ETA per Joyce. 1500.
[2020-02-21] MEDS ORDERED: PNEUMOCOCCAL VACC POLYS 25 MCG/0.5 ML VIAL IM ONE (16:00)
--- NOTE | 2020-02-21 16:40 | NUR ---
Transferred off the unit Patient picked up by EMR. Discharge instructions given as ordered. Encourage to follow up with PMD as instructed. All questions and concerns addressed. Patient verbalized understanding. Medication reconciliation form completed and copy given to patient. Home medications given to patient and needed vaccines given Pneumococcal. IV removed with catheter intact, pressure dressing applied. Patient taken to vehicle via gurney with all personal belongings, accompanied by EMR personnel. No distress noted at time of departure.
== END 2020-02-21 16:40 | DRG 149 ==
LOC: EDBD 19:38 → ER 19:42 → OVERFLOW 23:01 → CENTRAL 02-19 12:20
PROVIDERS: ADMIT Nurse Practitioner; ATTEND Hospitalist
DX: R42 Dizziness and giddiness (principal); R62.7 Adult failure to thrive; H53.2 Diplopia; I10 Essential (primary) hypertension; F41.9 Anxiety disorder, unspecified; F33.42 Major depressive disorder, recurrent, in full remission; E03.9 Hypothyroidism, unspecified; E78.5 Hyperlipidemia, unspecified; E87.6 Hypokalemia; I25.10 Atherosclerotic heart disease of native coronary artery without angina pectoris; R07.89 Other chest pain; K21.9 Gastro-esophageal reflux disease without esophagitis; Z60.2 Problems related to living alone; Z20.828 Contact with and (suspected) exposure to other viral communicable diseases; Z88.8 Allergy status to other drugs, medicaments and biological substances; Z90.49 Acquired absence of other specified parts of digestive tract; Z88.1 Allergy status to other antibiotic agents; Z88.5 Allergy status to narcotic agent; Z80.9 Family history of malignant neoplasm, unspecified; Z82.49 Family history of ischemic heart disease and other diseases of the circulatory system; Z83.3 Family history of diabetes mellitus; Z86.73 Personal history of transient ischemic attack (TIA), and cerebral infarction without residual deficits; Z95.0 Presence of cardiac pacemaker
CPT/HCPCS: 36415; 70450; 71045; 80048; 80053; 81001; 83735; 84484; 85025; 85610; 85730; 87426; 93005; 93306; 96360; 96361; 97163; G0378; J2405

== ENCOUNTER 2020-12-19 17:02 | Emergency (ER) | payer OTHER, MEDICAID ==
[~2020-12-19] VITALS: Ht 154.9 cm; Wt 54.4 kg
[2020-12-19 18:05] LABS: Basophils # (auto) 0 10 ^3/uL (0-0.2); Basophils % (auto) 0.6 % (0.0-2.0); Eosinophils # (auto) 0.1 10 ^3/uL (0-0.8); Eosinophils % (auto) 1.7 % (0.0-7.0); Hemoglobin 11.3 g/dL (12.2-16.2); Lymphocytes % (auto) 22.9 % (10.0-50.0); Mean Corpuscular Hemoglobin 29.7 pg (28.0-32.0); Mean Corpuscular Hgb Conc. 33.3 g/dL (32.0-36.0); Mean Corpuscular Volume 89.2 fL (80.0-100.0); Monocytes # (auto) 0.4 10 ^3/uL (0-1.3); Monocytes % (auto) 9.6 % (0.0-12.0); Neutrophils % (auto) 65.2 % (37.0-80.0); Red Blood Cells 3.81 10^6/uL (4.0-5.20); White Blood Cell 4.5 10^3/uL (4.4-10.8)
[2020-12-19 18:20] LABS: Albumin 3.6 g/dL (3.4-5.0); Calcium 8.7 mg/dL (8.5-10.1); Potassium 3.3 mmol/L (3.5-5.1)
[2020-12-19 18:23] LABS: BUN/Creatinine Ratio 14.8; Bilirubin, Total 0.4 mg/dL (0.2-1.0)
[2020-12-19 18:40] LABS: Magnesium 1.8 mg/dL (1.6-2.6)
[2020-12-20 00:39] LABS: Urine Bacteria NONE SEEN /hpf (None Seen); Urine Blood TRACE /uL (Negative); Urine Specific Gravity 1.008 (1.001-1.035); Urine WBC <1 /hpf (0 - 5)
[2020-12-20] MEDS ORDERED: POTASSIUM EFFERVESENT TAB 25 MEQ PO ONE (01:30)
[2020-12-20] MEDS ORDERED: ONDANSETRON ODT 4 MG TAB PO ONE (17:30)
[2020-12-21] MEDS ORDERED: diazePAM 2 MG TAB PO ONE (01:15)
[2020-12-21] MEDS ORDERED: RIVA20TA PO (10:55)
[2020-12-21] MEDS ORDERED: CYAN100T7 PO (10:55)
[2020-12-21] MEDS ORDERED: GABA100C9 PO (10:55)
[2020-12-21] MEDS ORDERED: MECL1TAB42 PO (10:55)
[2020-12-21] MEDS ORDERED: LORA0.5T19 PO (10:55)
[2020-12-21] MEDS ORDERED: CHOL20002 PO (10:55)
[2020-12-21] MEDS ORDERED: ACET-1079 PO (10:55)
[2020-12-21] MEDS ORDERED: CYAN100061 PO (11:45)
[2020-12-21] MEDS ORDERED: CHOL500023 PO (11:45)
[2020-12-21] MEDS ORDERED: LEVO25TA6 PO (11:46)
[2020-12-21] MEDS ORDERED: OXYB10TA14 PO (11:47)
[2020-12-21 19:06] VITALS: BP 122/68
== END 2020-12-21 19:26 | disposition home or self-care (01) ==
LOC: ER 17:02 → EDBD 17:02 → ER 12-21 19:26
DX: R32 Unspecified urinary incontinence (principal); E87.6 Hypokalemia; F41.9 Anxiety disorder, unspecified; F32.9 Major depressive disorder, single episode, unspecified; K21.9 Gastro-esophageal reflux disease without esophagitis; E78.5 Hyperlipidemia, unspecified; I10 Essential (primary) hypertension; I25.10 Atherosclerotic heart disease of native coronary artery without angina pectoris; Z20.822 Contact with and (suspected) exposure to COVID-19; Z88.8 Allergy status to other drugs, medicaments and biological substances; Z88.6 Allergy status to analgesic agent; Z88.1 Allergy status to other antibiotic agents; Z88.5 Allergy status to narcotic agent; Z88.2 Allergy status to sulfonamides; Z79.899 Other long term (current) drug therapy; Z79.82 Long term (current) use of aspirin; Z86.73 Personal history of transient ischemic attack (TIA), and cerebral infarction without residual deficits; Z90.89 Acquired absence of other organs; Z90.49 Acquired absence of other specified parts of digestive tract; Z95.0 Presence of cardiac pacemaker
CPT/HCPCS: 36415; 74176; 76856; 80053; 81001; 82150; 83605; 83690; 83735; 85025; 87086; 87426; 93005; 97163; Q0162

== ENCOUNTER 2021-08-11 16:16 | Emergency (ER) | payer OTHER, MEDICAID ==
[~2021-08-11] VITALS: Ht 152.4 cm; Wt 63.5 kg
[~2021-08-11 16:16] MED LIST changes: +ACET-1079 PO; -ASPI-543 PO; +CHOL500023 PO; +CYAN100061 PO; -ESCI10TA PO; -EZET10TA22 PO; +GABA100C9 PO; -GABA300C PO; -KETO10TA PO; +LORA0.5T19 PO; -LORA1TAB23 PO; +OXYB10TA14 PO; -OXYB15TA12 PO; -RIVA10TA PO; +RIVA20TA PO
[2021-08-11 19:12] LABS: Basophils # (auto) 0 10 ^3/uL (0-0.2); Eosinophils # (auto) 0.1 10 ^3/uL (0-0.8); Eosinophils % (auto) 1.4 % (0.0-7.0); Hematocrit 30.4 % (36.0-46.0); Hemoglobin 9.7 g/dL (12.2-16.2); Lymphocytes # (auto) 1.2 10 ^3/uL (0.4-5.4); Lymphocytes % (auto) 24.9 % (10.0-50.0); Mean Corpuscular Hemoglobin 26.5 pg (28.0-32.0); Mean Corpuscular Volume 82.8 fL (80.0-100.0); Monocytes # (auto) 0.4 10 ^3/uL (0-1.3); Monocytes % (auto) 7.8 % (0.0-12.0); Neutrophils # (auto) 3.2 10 ^3/uL (1.6-8.6); Neutrophils % (auto) 64.9 % (37.0-80.0); Red Blood Cells 3.67 10^6/uL (4.0-5.20); Red Cell Distribution Width 16.1 % (11.8-14.3)
[2021-08-11 19:28] LABS: Albumin 3.8 g/dL (3.4-5.0); Potassium 3.5 mmol/L (3.5-5.1)
[2021-08-11 19:31] LABS: Bilirubin, Total 0.5 mg/dL (0.2-1.0)
[2021-08-11 22:58] LABS: Urine Bacteria NONE SEEN /hpf (None Seen); Urine Blood Negative /uL (Negative); Urine Specific Gravity 1.005 (1.001-1.035); Urine WBC 2 /hpf (0 - 5)
[2021-08-12 11:30] VITALS: BP 132/62
== END 2021-08-12 11:58 | disposition home or self-care (01) ==
LOC: EDBD 16:16 → ER 16:28
DX: R35.0 Frequency of micturition (principal); R30.0 Dysuria; I10 Essential (primary) hypertension; I25.10 Atherosclerotic heart disease of native coronary artery without angina pectoris; E78.5 Hyperlipidemia, unspecified; K21.9 Gastro-esophageal reflux disease without esophagitis; E03.9 Hypothyroidism, unspecified; Z86.73 Personal history of transient ischemic attack (TIA), and cerebral infarction without residual deficits; Z90.49 Acquired absence of other specified parts of digestive tract; Z95.0 Presence of cardiac pacemaker; Z90.89 Acquired absence of other organs; Z87.891 Personal history of nicotine dependence; Z79.899 Other long term (current) drug therapy; Z88.1 Allergy status to other antibiotic agents; Z88.2 Allergy status to sulfonamides; Z88.5 Allergy status to narcotic agent; Z88.8 Allergy status to other drugs, medicaments and biological substances
CPT/HCPCS: 36415; 80053; 81001; 84484; 85025; 93005

== ENCOUNTER 2021-08-21 08:03 | Emergency (ER) | payer OTHER, MEDICAID ==
[~2021-08-21] VITALS: Ht 152.4 cm; Wt 54.4 kg
[2021-08-21 08:48] LABS: Urine WBC None Seen /hpf (0 - 5)
[2021-08-21 09:29] LABS: Urine Bacteria NONE SEEN /hpf (None Seen); Urine Blood Negative /uL (Negative); Urine Specific Gravity 1.008 (1.001-1.035)
[2021-08-21 12:45] VITALS: BP 179/87
== END 2021-08-21 16:20 | disposition home or self-care (01) ==
LOC: ER 08:03 → EDBD 08:03 → ER 16:20
DX: R35.0 Frequency of micturition (principal); F41.9 Anxiety disorder, unspecified; I25.10 Atherosclerotic heart disease of native coronary artery without angina pectoris; I10 Essential (primary) hypertension; K21.9 Gastro-esophageal reflux disease without esophagitis; E03.9 Hypothyroidism, unspecified; E78.5 Hyperlipidemia, unspecified; Z86.73 Personal history of transient ischemic attack (TIA), and cerebral infarction without residual deficits; Z90.49 Acquired absence of other specified parts of digestive tract; Z90.89 Acquired absence of other organs; Z95.0 Presence of cardiac pacemaker; Z87.891 Personal history of nicotine dependence; Z79.899 Other long term (current) drug therapy; Z88.2 Allergy status to sulfonamides; Z88.1 Allergy status to other antibiotic agents; Z88.8 Allergy status to other drugs, medicaments and biological substances
CPT/HCPCS: 81001; 93005

== ENCOUNTER 2023-02-08 15:47 | Emergency (ER) | payer OTHER, MEDICAID ==
[~2023-02-08] VITALS: Ht 160 cm; Wt 49.0 kg
[~2023-02-08 15:47] MED LIST changes: +FOLI-119 PO; -FOLI1TAB6 PO; +GABA-1308 PO; -GABA100C9 PO; +LORA-1120 PO; -LORA0.5T19 PO
[2023-02-08 16:40] VITALS: PULSE 70; RESP 13; O2SAT 96
[2023-02-08 16:52] LABS: Basophils # (auto) 0 10 ^3/uL (0-0.2); Basophils % (auto) 0.7 % (0.0-2.0); Eosinophils # (auto) 0.1 10 ^3/uL (0-0.8); Eosinophils % (auto) 1.1 % (0.0-7.0); Hematocrit 40.8 % (36.0-46.0); Hemoglobin 13.6 g/dL (12.2-16.2); Lymphocytes % (auto) 19.7 % (10.0-50.0); Mean Corpuscular Hemoglobin 31.6 pg (28.0-32.0); Mean Corpuscular Hgb Conc. 33.3 g/dL (32.0-36.0); Mean Corpuscular Volume 94.9 fL (80.0-100.0); Monocytes # (auto) 0.4 10 ^3/uL (0-1.3); Monocytes % (auto) 7.6 % (0.0-12.0); Neutrophils # (auto) 3.6 10 ^3/uL (1.6-8.6); Neutrophils % (auto) 70.9 % (37.0-80.0); Nucleated Red Blood Cells % 0.1 %; Red Cell Distribution Width 14.5 % (11.8-14.3); White Blood Cell 5.1 10^3/uL (4.4-10.8)
[2023-02-08 17:04] LABS: INR 1.06 (0.9-1.15); Partial Thromboplastin Time 23.9 SEC (24.5-34.5); Prothrombin Time 11.1 sec (9.3-11.8)
[2023-02-08 17:08] LABS: Alanine Aminotransferase 14 U/L (7-40); Albumin 4.7 g/dL (3.2-4.8); Alkaline Phosphatase 66 U/L (46-116); Anion Gap 6 (5-15); Aspartate Aminotransferase 34 U/L (13-40); BUN/Creatinine Ratio 12.7 (10.0-20.0); Blood Urea Nitrogen 9 mg/dL (9-23); Calcium 9.7 mg/dL (8.7-10.4); Carbon Dioxide 26 mmol/L (20-30); Chloride 106 mmol/L (98-107); Glucose 93 mg/dL (74-106); Magnesium 1.9 mg/dL (1.6-2.6); Potassium 4.2 mmol/L (3.5-5.1); Sodium 138 mmol/L (136-145)
[2023-02-08 17:09] LABS: Bilirubin, Total 0.8 mg/dL (0.2-1.0); Total Protein 7.5 g/dL (5.7-8.2)
[2023-02-08] MEDS ORDERED: FLEET ENEMA(ADULT) 135 ML PR ONE (17:30)
[2023-02-08 20:00] VITALS: PULSE 70; RESP 14; O2SAT 96
[2023-02-08] MEDS ORDERED: ACETAMINOPHEN 325 MG TAB PO ONE (23:15)
[2023-02-09 00:26] VITALS: BP 135/78; PULSE 70; RESP 12; TEMP 97.4; O2SAT 97
== END 2023-02-09 00:43 | disposition short-term general hospital (02) ==
LOC: ER 15:47 → EDBD 15:47 → ER 02-09 00:43
DX: I10 Essential (primary) hypertension (principal); K92.2 Gastrointestinal hemorrhage, unspecified; R51.9 Headache, unspecified; K59.00 Constipation, unspecified; E78.5 Hyperlipidemia, unspecified; I25.10 Atherosclerotic heart disease of native coronary artery without angina pectoris; F41.9 Anxiety disorder, unspecified; F32.9 Major depressive disorder, single episode, unspecified; K21.9 Gastro-esophageal reflux disease without esophagitis; Z86.73 Personal history of transient ischemic attack (TIA), and cerebral infarction without residual deficits; Z98.890 Other specified postprocedural states; Z87.891 Personal history of nicotine dependence; Z88.8 Allergy status to other drugs, medicaments and biological substances; Z79.899 Other long term (current) drug therapy
CPT/HCPCS: 36415; 70450; 71045; 74176; 80053; 83735; 83880; 84484; 85025; 85610; 85730; 93005

== ENCOUNTER 2023-06-23 00:40 | Emergency (ER) | payer OTHER, MEDICAID ==
[~2023-06-23] VITALS: Ht 157.5 cm; Wt 54.4 kg
[2023-06-23 01:30] VITALS: PULSE 89; RESP 20; O2SAT 96
[2023-06-23 01:38] LABS: Basophils # (auto) 0 10 ^3/uL (0-0.2); Basophils % (auto) 0.3 % (0.0-2.0); Eosinophils # (auto) 0 10 ^3/uL (0-0.8); Eosinophils % (auto) 0.5 % (0.0-7.0); Hematocrit 40.5 % (36.0-46.0); Hemoglobin 13.3 g/dL (12.2-16.2); Lymphocytes # (auto) 0.5 10 ^3/uL (0.4-5.4); Lymphocytes % (auto) 5.7 % (10.0-50.0); Mean Corpuscular Hemoglobin 31.9 pg (28.0-32.0); Mean Corpuscular Hgb Conc. 32.7 g/dL (32.0-36.0); Mean Corpuscular Volume 97.5 fL (80.0-100.0); Monocytes # (auto) 0.5 10 ^3/uL (0-1.3); Monocytes % (auto) 5.3 % (0.0-12.0); Neutrophils # (auto) 8.4 10 ^3/uL (1.6-8.6); Neutrophils % (auto) 88.2 % (37.0-80.0); Red Blood Cells 4.16 10^6/uL (4.0-5.20); Red Cell Distribution Width 12.6 % (11.8-14.3); White Blood Cell 9.6 10^3/uL (4.4-10.8)
[2023-06-23 01:53] LABS: Albumin 4.1 g/dL (3.2-4.8); Alkaline Phosphatase 55 U/L (46-116); Anion Gap 7 (5-15); Aspartate Aminotransferase 23 U/L (13-40); BUN/Creatinine Ratio 16.9 (10.0-20.0); Blood Urea Nitrogen 14 mg/dL (9-23); Calcium 9.3 mg/dL (8.7-10.4); Carbon Dioxide 26 mmol/L (20-30); Chloride 104 mmol/L (98-107); Glucose 122 mg/dL (74-106); Potassium 3.6 mmol/L (3.5-5.1); Sodium 137 mmol/L (136-145)
[2023-06-23 01:54] LABS: Bilirubin, Total 0.8 mg/dL (0.2-1.0); Total Protein 6.6 g/dL (5.7-8.2)
[2023-06-23 02:03] LABS: Alanine Aminotransferase 9 U/L (7-40)
[2023-06-23 06:31] LABS: Urine Bacteria FEW /hpf (None Seen); Urine Blood 1+ /uL (Negative); Urine Clarity Clear (Clear); Urine Color Yellow (Yellow); Urine Hyaline Cast FEW /lpf (0 - 2); Urine Protein, UAD Negative (Negative); Urine Specific Gravity 1.016 (1.001-1.035); Urine Urobilinogen Normal (Negative); Urine WBC 4 /hpf (0 - 5); Urine pH 5.5 (5.0-8.0)
[2023-06-23 07:43] VITALS: BP 126/66; PULSE 81; RESP 18; TEMP 98.2; O2SAT 97
== END 2023-06-23 07:51 | disposition short-term general hospital (02) ==
LOC: EDBD 00:40 → ER 00:40
DX: R55 Syncope and collapse (principal); R53.1 Weakness; I49.3 Ventricular premature depolarization; E11.9 Type 2 diabetes mellitus without complications; K21.9 Gastro-esophageal reflux disease without esophagitis; E78.5 Hyperlipidemia, unspecified; I10 Essential (primary) hypertension; Z90.49 Acquired absence of other specified parts of digestive tract; Z87.891 Personal history of nicotine dependence; Z86.73 Personal history of transient ischemic attack (TIA), and cerebral infarction without residual deficits; Z88.0 Allergy status to penicillin; Z88.1 Allergy status to other antibiotic agents; Z88.2 Allergy status to sulfonamides; Z88.8 Allergy status to other drugs, medicaments and biological substances; Z88.6 Allergy status to analgesic agent
CPT/HCPCS: 36415; 70450; 71045; 80053; 81001; 83880; 84484; 85025; 93005

== ENCOUNTER 2023-07-27 21:38 | Emergency (ER) | payer OTHER, MEDICAID ==
[~2023-07-27] VITALS: Ht 157.5 cm; Wt 55.0 kg
[2023-07-27 22:15] LABS: Basophils # (auto) 0 10 ^3/uL (0-0.2); Basophils % (auto) 1.2 % (0.0-2.0); Eosinophils # (auto) 0.1 10 ^3/uL (0-0.8); Hematocrit 37.5 % (36.0-46.0); Hemoglobin 12.1 g/dL (12.2-16.2); Lymphocytes % (auto) 24.1 % (10.0-50.0); Mean Corpuscular Hemoglobin 30.9 pg (28.0-32.0); Mean Corpuscular Hgb Conc. 32.2 g/dL (32.0-36.0); Mean Corpuscular Volume 95.9 fL (80.0-100.0); Monocytes # (auto) 0.5 10 ^3/uL (0-1.3); Monocytes % (auto) 12.2 % (0.0-12.0); Neutrophils # (auto) 2.5 10 ^3/uL (1.6-8.6); Neutrophils % (auto) 60.5 % (37.0-80.0); Nucleated Red Blood Cells % 0.1 %; Red Blood Cells 3.91 10^6/uL (4.0-5.20); Red Cell Distribution Width 13.1 % (11.8-14.3); White Blood Cell 4.1 10^3/uL (4.4-10.8)
[2023-07-27 22:26] LABS: Alanine Aminotransferase 10 U/L (7-40); Albumin 4.3 g/dL (3.2-4.8); Alkaline Phosphatase 64 U/L (46-116); Anion Gap 5 (5-15); Aspartate Aminotransferase 17 U/L (13-40); BUN/Creatinine Ratio 16.3 (10.0-20.0); Bilirubin, Total 0.5 mg/dL (0.2-1.0); Blood Urea Nitrogen 14 mg/dL (9-23); Calcium 10.1 mg/dL (8.7-10.4); Carbon Dioxide 28 mmol/L (20-30); Chloride 105 mmol/L (98-107); Glucose 101 mg/dL (74-106); Potassium 3.9 mmol/L (3.5-5.1); Sodium 138 mmol/L (136-145); Total Protein 6.8 g/dL (5.7-8.2)
[2023-07-28] MEDS: MECLIZINE HCL 25 MG TAB PO ONE (01:48)
[2023-07-28] MEDS: ONDANSETRON ODT 4 MG TAB PO ONE (01:49)
[2023-07-28] MEDS: ACETAMINOPHEN 500 MG TAB PO ONE (01:49)
[2023-07-28] MEDS ORDERED: levoFLOXacin 750MG 150 ML IV ONE (02:15)
[2023-07-28] MEDS ORDERED: METO-281 PO (04:47)
[2023-07-28 05:46] VITALS: BP 102/61; PULSE 70; RESP 17; TEMP 98; O2SAT 100
== END 2023-07-28 05:46 | disposition home or self-care (01) ==
LOC: ER 21:38 → EDBD 21:38 → ER 07-28 05:46
DX: J18.9 Pneumonia, unspecified organism (principal); I10 Essential (primary) hypertension; I25.10 Atherosclerotic heart disease of native coronary artery without angina pectoris; E11.9 Type 2 diabetes mellitus without complications; F41.9 Anxiety disorder, unspecified; F32.9 Major depressive disorder, single episode, unspecified; E78.5 Hyperlipidemia, unspecified; Z86.73 Personal history of transient ischemic attack (TIA), and cerebral infarction without residual deficits; Z98.890 Other specified postprocedural states; Z87.891 Personal history of nicotine dependence; Z88.8 Allergy status to other drugs, medicaments and biological substances; Z79.899 Other long term (current) drug therapy
CPT/HCPCS: 36415; 70450; 71045; 80053; 83605; 83880; 84484; 85025; 93005; 99285; J8597; Q0162